=== PATIENT | female | born 1995 | race Caucasian/White ===

== ENCOUNTER 2019-03-17 16:55 | Emergency (ER) | payer SELFPAY ==
--- NOTE | 2019-03-17 18:20 | EDM.PDOC ---
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 She reports ever since she had her daughter 4 years ago she has only had a few periods. She reports the most recent period has lasted 3 weeks. It starts heavy then decreases and starts again. She reports feeling weak and had developed a recent headache. She reports currently her period has stopped. She denies fever, chills, nausea, vomiting or back pain. Onset Date: 02/24/19 Onset Time: 12:00 Duration: Intermittent Severity: Mild Improves with: Reports: None Worsens with: Reports: None Associated Symptoms: Reports: Headaches, Weakness. Denies: Confusion, Fever/ Chills, Loss of Appetite, Nausea/Vomiting, Syncope Pelvic Pain Score (Numeric/FACES): 5 - Related Data Allergies Allergy/AdvReac Type Severity Reaction Status Date / Time No Known Allergies Allergy Verified 03/17/19 17:22 Home Meds: Home Meds . 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 Denies: Dysuria, Flank Pain, Pain, Urgency Musculoskeletal: Reports: No Symptoms Skin: Reports: No Symptoms Neurological: Reports: Headache Psychiatric: Reports: No Symptoms Hematologic/Lymphatic: Reports: No Symptoms Immunologic: Reports: No Symptoms ED EXAM, GI/ABD - Physical Exam Exam: See Below Exam Limited By: No Limitations General Appearance: Alert, WD/WN, No Apparent Distress Eyes: Bilateral: EOMI Head: Atraumatic, Normocephalic Neck: Normal Inspection, Supple, Non-Tender, Full Range of Motion Respiratory/Chest: No Respiratory Distress, Lungs Clear, Normal Breath Sounds, No Accessory Muscle Use, Chest Non-Tender Cardiovascular: Normal Peripheral Pulses, Regular Rate, Rhythm, No Edema, No Gallop, No JVD, No Murmur, No Rub GI/Abdominal Exam: Normal Bowel Sounds, Soft, Non-Tender, No Organomegaly, No Distention, No Abnormal Bruit, No Mass, Pelvis Stable Back Exam: Normal Inspection, Full Range of Motion Neurological: Alert, Oriented, CN II-XII Intact, Normal Cognition, Normal Gait, Normal Reflexes, No Motor/Sensory Deficits Psychiatric: Normal Affect, Normal Mood Skin Exam: Warm, Dry, Intact, Normal Color, No Rash Lymphatic: No Adenopathy Course - Vital Signs Last Recorded V/S: Last Vital Signs Temp 98.4 F 03/17/19 17:11 Pulse 96 03/17/19 17:11 Resp 12 03/17/19 17:11 BP 143/99 H 03/17/19 17:11 Pulse Ox 100 03/17/19 17:11 - Orders/Labs/Meds Labs: Laboratory Tests 03/17/19 Range/Units 18:30 WBC 8.29 (3.98-10.04) K/mm3 RBC 4.71 (3.98-5.22) M/mm3 Hgb 14.2 (11.2-15.7) gm/L Hct 41.6 (34.1-44.9) % MCV 88.3 (79.4-94.8) fl MCH 30.1 (25.6-32.2) pg MCHC 34.1 (32.2-35.5) g/dl RDW Std Deviation 41.1 (36.4-46.3) fL Plt Count 213 (182-369) K/mm3 MPV 10.2 (9.4-12.3) fl Neut % (Auto) 72.3 H (34.0-71.1) % Lymph % (Auto) 20.9 (19.3-51.7) % [place] % (Auto) 5.5 (4.7-12.5) % Eos % (Auto) 1.0 (0.7-5.8) Baso % (Auto) 0.2 (0.1-1.2) % Neut # (Auto) 5.99 (1.56-6.13) K/mm3 Lymph # (Auto) 1.73 (1.18-3.74) K/mm3 [place] # (Auto) 0.46 H (0.24-0.36) K/mm3 Eos # (Auto) 0.08 (0.04-0.36) K/mm3 Baso # (Auto) 0.02 (0.01-0.08) K/mm3 Meds: Medications Discontinued Medications Generic Name Dose Route Start Last Admin Trade Name Freq PRN Reason Stop Dose Admin Ketorolac Tromethamine 30 mg 03/17/19 18:14 03/17/19 19:00 Toradol IM 03/17/19 18:15 30 mg ONETIME ONE Administration - Re-Assessments/Exams Free Text/Narrative Re-Assessment/Exam: 03/17/19 19:04 23 y/o female presented to ER with cc irregular period for the pat 3 weeks. Her WBC 8.29 RBC 4.71 H & H 14.2/41.6. She received Toradol and her condition improved. I will discharge with instructions to follow up with transit mix operator for further evaluation and treatment of her irregular menses. I will refer her to Dr. Boyer since she doesn't have a transit mix operator. Instructed to return to the ER for any new or acute worsening symptoms. Patient verbalized understanding and is comfortable with plan for discharge. She is stable at time of discharge. Departure - Departure Time of Disposition: 19:06 Disposition: Home, Self-Care 01 Condition: Good Clinical Impression: Irregular menses - Discharge Information Instructions: Abnormal Uterine Bleeding, [id number] Referrals: PCP,None [Primary Care Provider] - Forms: ED Department Discharge Additional Instructions: you have been diagnosis with irregular periods. Your blood studies were unremarkable. I recommend you follow up with Dr. Boyer transit mix operator for further evaluation of irregular periods. Return to the ER for any new or acute worsening symptoms.
[2019-03-17] MEDS: Ketorolac 30 MG/ML SDV IM ONE (19:00)
== END 2019-03-17 19:30 | disposition home or self-care (01) ==
LOC: JD.ED 16:55
DX: N92.6 Irregular menstruation, unspecified (principal); F17.210 Nicotine dependence, cigarettes, uncomplicated
CPT/HCPCS: 36415; 85025; 96372; 99284; J1885; 99283

== ENCOUNTER 2019-04-17 17:11 | Emergency (ER) | payer MEDICAID ==
[2019-04-17] MEDS ORDERED: Sodium Chloride 0.9% 10 ML Syringe FLUSH PRN (17:36)
[2019-04-17] MEDS ORDERED: Ketorolac 30 MG/ML SDV IVPUSH ONE (17:36)
[2019-04-17] MEDS ORDERED: Ondansetron 4 MG/2 ML SDV IVPUSH ONE (17:36)
[2019-04-17] MEDS ORDERED: Lactated Ringers 1,000 ML IV ONE ×2 (17:45→18:50)
--- NOTE | 2019-04-17 18:13 | EDM.PDOC ---
ED HPI GENERAL MEDICAL PROBLEM - General Chief Complaint: Gastrointestinal Problem Stated Complaint: VOMITING Time Seen by Provider: 04/17/19 17:20 Source of Information: Reports: Patient History Limitations: Reports: No Limitations - History of Present Illness INITIAL COMMENTS - FREE TEXT/NARRATIVE: 23-year-old female presents for evaluation and treatment of nausea and vomiting. Patient reports that she went out drinking alcohol last night, does not recall how much she had. She states today she's been unable to keep anything down and has been vomiting constantly. She reports some abdominal pain and nausea. No diarrhea. States that she does not normally drink alcohol. Reports prior to last night she had no symptoms. Reports a chance or . Abdominal Pain Score (Numeric/FACES): 10 - Related Data Allergies Allergy/AdvReac Type Severity Reaction Status Date / Time No Known Allergies Allergy Verified 04/17/19 17:21 Home Meds: Home Meds . 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 Denies: Diarrhea, Hematemesis Neurological: Denies: Headache (earlier, none currently) ED EXAM, GI/ABD - Physical Exam Exam: See Below Exam Limited By: No Limitations General Appearance: Alert, WD/WN, Mild Distress (actively vomiting upon my arrival), Thin Throat/Mouth: Normal Inspection, Other (dry mucus membranes) Respiratory/Chest: No Respiratory Distress, Lungs Clear, Normal Breath Sounds Cardiovascular: Normal Peripheral Pulses, Regular Rate, Rhythm, No Murmur GI/Abdominal Exam: Normal Bowel Sounds, Soft, Non-Tender Neurological: Alert, Oriented, Normal Cognition Psychiatric: Normal Affect, Normal Mood Skin Exam: Warm, Dry, Normal Color Course - Vital Signs Last Recorded V/S: Last Vital Signs Temp 98.0 F 04/17/19 17:22 Pulse 84 04/17/19 17:22 Resp 18 04/17/19 17:22 BP 127/78 04/17/19 17:22 Pulse Ox 98 04/17/19 17:22 - Orders/Labs/Meds Labs: Laboratory Tests 04/17/19 04/17/19 04/17/19 Range/Units 18:10 18:10 18:10 WBC 14.25 H (3.98-10.04) K/mm3 RBC 5.23 H (3.98-5.22) M/mm3 Hgb 15.5 (11.2-15.7) gm/L Hct 45.0 H (34.1-44.9) % MCV 86.0 (79.4-94.8) fl MCH 29.6 (25.6-32.2) pg MCHC 34.4 (32.2-35.5) g/dl RDW Std Deviation 41.1 (36.4-46.3) fL Plt Count 293 D (182-369) K/mm3 MPV 9.9 (9.4-12.3) fl Neut % (Auto) 87.6 H (34.0-71.1) % Lymph % (Auto) 7.5 L (19.3-51.7) % [place] % (Auto) 4.5 L (4.7-12.5) % Eos % (Auto) 0 L (0.7-5.8) Baso % (Auto) 0.1 (0.1-1.2) % Neut # (Auto) 12.49 H (1.56-6.13) K/mm3 Lymph # (Auto) 1.07 L (1.18-3.74) K/mm3 [place] # (Auto) 0.64 H (0.24-0.36) K/mm3 Eos # (Auto) 0.00 L (0.04-0.36) K/mm3 Baso # (Auto) 0.01 (0.01-0.08) K/mm3 Manual Slide Review Abnormal smear Sodium 139 (136-145) mEq/L Potassium 4.1 (3.5-5.1) mEq/L Chloride 97 L (98-107) mEq/L Carbon Dioxide 23 (21-32) mEq/L Anion Gap 23.1 H (5-15) BUN 29 H (7-18) mg/dL Creatinine 1.2 H (0.55-1.02) mg/dL Est Cr Clr Drug Dosing 53.27 mL/min Estimated GFR (MDRD) 57 (>60) mL/min BUN/Creatinine Ratio 24.2 H (14-18) Glucose 101 (74-106) mg/dL Calcium 10.0 (8.5-10.1) mg/dL Magnesium 1.7 L (1.8-2.4) mg/dl Total Bilirubin 0.7 (0.2-1.0) mg/dL AST 41 H (15-37) U/L ALT 43 (14-59) U/L Alkaline Phosphatase 94 (46-116) U/L Total Protein 9.1 H (6.4-8.2) g/dl Albumin 4.9 (3.4-5.0) g/dl Globulin 4.2 gm/dL Albumin/Globulin Ratio 1.2 (1-2) HCG, Qual Negative (NEGATIVE) Meds: Medications Discontinued Medications Generic Name Dose Route Start Last Admin Trade Name Freq PRN Reason Stop Dose Admin Lactated Ringer's 1,000 mls @ 999 mls/hr 04/17/19 17:45 04/17/19 18:09 Ringers, Lactated IV 04/17/19 18:45 999 mls/hr .BOLUS ONE Administration Lactated Ringer's 1,000 mls @ 999 mls/hr 04/17/19 18:50 04/17/19 19:01 Ringers, Lactated IV 04/17/19 19:50 999 mls/hr .BOLUS ONE Administration Ketorolac Tromethamine 30 mg 04/17/19 17:36 04/17/19 18:10 Toradol IVPUSH 04/17/19 17:37 30 mg ONETIME ONE Administration Metoclopramide HCl 5 mg 04/17/19 18:51 04/17/19 19:01 Reglan IVPUSH 04/17/19 18:52 5 mg ONETIME ONE Administration Ondansetron HCl 4 mg 04/17/19 17:36 04/17/19 18:10 Zofran IVPUSH 04/17/19 17:37 4 mg ONETIME ONE Administration Sodium Chloride 10 ml 04/17/19 17:36 04/17/19 18:11 Saline Flush FLUSH 10 ml ASDIRECTED PRN Administration Keep Vein Open - Re-Assessments/Exams Free Text/Narrative Re-Assessment/Exam: 04/17/19 20:16 Patient feels improved after 2L LR, zofran, toradol and reglan. Is eating toast at this time. Feels comfortable going home. Will send home with some zofran. Labs reviewed with the patient. Discharge instructions as documented. Departure - Departure Time of Disposition: 20:18 Disposition: Home, Self-Care 01 Condition: Good Clinical Impression: Nausea & vomiting, Alcohol abuse - Discharge Information *PRESCRIPTION DRUG MONITORING PROGRAM REVIEWED*: No *COPY OF PRESCRIPTION DRUG MONITORING REPORT IN PATIENT CHANDNI: No Instructions: Alcohol Use Disorder, Nausea and Vomiting, Adult, [id number] Referrals: PCP,None [Primary Care Provider] - Forms: ED Department Discharge Additional Instructions: Zofran 4 mg sublingual tab every 8 hours as needed for nausea given from instymeds #10. Take the Zofran as needed 1 tab every 6 hours as needed for nausea. Recommend clear fluids and bland diet today. May advance to normal diet tomorrow as tolerated. Please return to the ER if your symptoms change or worsen.
[2019-04-17] MEDS ORDERED: Metoclopramide 10 MG/2 ML SDV IVPUSH ONE (18:51)
== END 2019-04-17 20:25 | disposition home or self-care (01) ==
LOC: JD.ED 17:11
DX: F10.10 Alcohol abuse, uncomplicated (principal); R11.2 Nausea with vomiting, unspecified; F17.210 Nicotine dependence, cigarettes, uncomplicated
CPT/HCPCS: 36415; 80053; 83735; 84703; 85025; 96361; 96374; 96375; 99284; J1885; J2405; J2765; J7120

== ENCOUNTER 2019-11-05 20:59 | Emergency (ER) | payer SELFPAY ==
--- NOTE | 2019-11-05 21:38 | EDM.PDOC ---
ED HPI GENERAL MEDICAL PROBLEM - General Chief Complaint: Respiratory Problem Stated Complaint: sob chest pain Time Seen by Provider: 11/05/19 21:38 Source of Information: Reports: Patient History Limitations: Reports: No Limitations - History of Present Illness INITIAL COMMENTS - FREE TEXT/NARRATIVE: 23-year-old female presents to the ED complaining of shortness of breath and a feeling like she can't get a full deep breath. She has a remote history of asthma but has not used an inhaler for a lengthy period of time. She does not appreciate any wheezing. The history suggests that she has enjoyed about a year of sobriety from methamphetamines but did take some about 3:00 this morning. She felt fine about 5:00 but since that time is developed more more anxiety and panic-like symptoms. She is actively hyperventilating in the room and just can' t relax. She did eat a little bit of food today. She denies possibility of . Size cough or sputum production or fever. Onset: Today Onset Date: 11/05/19 Onset Time: 08:00 Duration: Hour(s): Location: Reports: Generalized Quality: Reports: Other (Generalized sense of anxiety and hyperventilation. Dyspnea) Severity: Severe Improves with: Reports: None Worsens with: Reports: None Context: Reports: Other (Methamphetamine reaction.). Denies: Activity, Exercise , Lifting, Sick Contact, Trauma Associated Symptoms: Reports: Loss of Appetite, Malaise, Shortness of Breath. Denies: Confusion, Chest Pain, Cough, cough w sputum, Diaphoresis, Fever/Chills , Headaches, Nausea/Vomiting, Rash, Seizure, Syncope, Weakness Treatments EMAIL MARKETING COORDINATOR: Reports: Other (see below) (None.) Chest Pain Score (Numeric/FACES): 4 - Related Data Allergies Allergy/AdvReac Type Severity Reaction Status Date / Time No Known Allergies Allergy Verified 11/05/19 21:05 Home Meds: Home Meds . 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 Denies : Fever, Chills HEENT: Reports: No Symptoms Respiratory: Reports: Shortness of Breath. Denies: Wheezing, Pleuritic Chest Pain, Cough, Sputum, Hemoptysis, Other Cardiovascular: Reports: Lightheadedness, Palpitations. Denies: Chest Pain ( Strong feeling of inability to get a full deep breath.), Blood Pressure Problem , Claudication Endocrine: Reports: No Symptoms GI/Abdominal: Reports: Decreased Appetite : Reports: No Symptoms Musculoskeletal: Reports: No Symptoms Skin: Reports: Other Neurological: Reports: No Symptoms (Feels a bit clammy at times.) Psychiatric: Reports: Anxiety ED EXAM, GENERAL - Physical Exam Exam: See Below Exam Limited By: No Limitations General Appearance: Alert, WD/WN, Moderate Distress, Other (Hyperventilating. Temperature is 37.8. Pulse is 97 respiratory rate is 24 sats are 97% on room air. BP 127/85) Eye Exam: Bilateral Eye: Normal Inspection, PERRL Throat/Mouth: Normal Inspection, Normal Lips, Normal Oropharynx Head: Atraumatic, Normocephalic Neck: Normal Inspection, Supple, Non-Tender, Full Range of Motion. No: Lymphadenopathy (L), Lymphadenopathy (R) Respiratory/Chest: Lungs Clear, Normal Breath Sounds (Moderate tachypnea.), No Accessory Muscle Use, Chest Non-Tender, Respiratory Distress. No: Crackles, Rales, Rhonchi, Wheezing Cardiovascular: No Edema, No Gallop (Tachycardia at the bedside and I got 1 16/ m.), No JVD, No Murmur, No Rub, Tachycardia Peripheral Pulses: 3+: Posterior Tibial (L), Posterior Tibial (R), Dorsalis Pedis (L), Dorsalis Pedis (R) GI/Abdominal: Normal Bowel Sounds, Soft, Non-Tender, No Organomegaly, No Abnormal Bruit, No Mass, Pelvis Stable Back Exam: Normal Inspection, Full Range of Motion. No: CVA Tenderness (L), CVA Tenderness (R) Extremities: Normal Inspection, Normal Range of Motion, Non-Tender Neurological: Alert, Oriented, CN II-XII Intact, Normal Cognition, Normal Gait Psychiatric: Anxious Skin Exam: Warm, Dry, Intact, Normal Color, No Rash EKG INTERPRETATION EKG Date: 11/05/19 Time: 21:19 Rhythm: NSR Rate (Beats/Min): 88 (Occasional PACs) [place]: Normal P-Wave: Enlarged (Consider left atrial hypertrophy) QRS: Normal ST-T: Normal QT: Prolonged (Mildly prolonged at 469.) EKG Interpretation Comments: Borderline ECG Course - Vital Signs Last Recorded V/S: Last Vital Signs Temp 37.8 C 11/05/19 21:08 Pulse 97 11/05/19 21:08 Resp 18 11/05/19 21:08 BP 127/85 11/05/19 21:08 Pulse Ox 97 11/05/19 21:08 - Orders/Labs/Meds Orders: Active Orders 24 hr Category Date Time Status EKG 12 Lead [EKG Documentation Completion] [RC] STAT Care 11/05/19 21:18 Active Meds: Medications Discontinued Medications Generic Name Dose Route Start Last Admin Trade Name Freq PRN Reason Stop Dose Admin Lorazepam 2 mg 11/05/19 21:42 11/05/19 21:52 Ativan PO 11/05/19 21:43 2 mg ONETIME ONE Administration - Radiology Interpretation Free Text/Narrative:: 23-year-old female presents to the ED with dyspnea symptoms. She feels that she cannot get a full deep breath. Note she is methamphetamines earlier this morning for the first time in a year. It okay about 5:00 in the morning but by age she started to feel more anxious. This evening she's become feeling even more panicky likely partially due to guilt. She states she has a history of asthma but has not used an inhaler for a lengthy period of time. Examination reveals her to be hyperventilating and suffering panic attack symptoms. To the stimulant effect of methamphetamine. Plan Ativan 1 mg by mouth now and sent home with one tablet to take later this morning if needed. Departure - Departure Time of Disposition: 21:49 Disposition: Home, Self-Care 01 Condition: Fair Clinical Impression: Hyperventilation syndrome, Anxiety attack - Discharge Information *PRESCRIPTION DRUG MONITORING PROGRAM REVIEWED*: Not Applicable *COPY OF PRESCRIPTION DRUG MONITORING REPORT IN PATIENT CHANDNI: Not Applicable Instructions: Panic Attack, [id number] Referrals: PCP,None [Primary Care Provider] - Forms: ED Department Discharge Additional Instructions: Evaluation the emergency room tonight in regards to dyspnea or feeling of shortness of breath and inability to get a full deep breath. Lungs are clear on examination but you are hyper ventilating due to the stimulant effect of methamphetamine taken earlier today. Created some anxiety and panic attack symptoms. Treatment is Ativan 1 mg now and repeat in 4-6 hours if necessary to bring symptoms under control. Sepsis Event Note - Evaluation Sepsis Screening Result: No Definite Risk - Focused Exam Vital Signs: Vital Signs Temp Pulse Resp BP Pulse Ox 11/05/19 21:08 37.8 C 97 18 127/85 97 Date Exam was Performed: 11/05/19 Time Exam was Performed: 23:03 - My Orders Last 24 Hours: My Active Orders 11/05/19 21:18 EKG 12 Lead [EKG Documentation Completion] [RC] STAT - Assessment/Plan Last 24 Hours: My Active Orders 11/05/19 21:18 EKG 12 Lead [EKG Documentation Completion] [RC] STAT
[2019-11-05] MEDS ORDERED: LORazepam 1 MG Tab PO ONE (21:42)
== END 2019-11-05 22:05 | disposition home or self-care (01) ==
LOC: JD.ED 20:59
DX: F41.9 Anxiety disorder, unspecified (principal); J45.909 Unspecified asthma, uncomplicated; F17.210 Nicotine dependence, cigarettes, uncomplicated
CPT/HCPCS: 93005; 99284; A9270; 93010; 99283

== ENCOUNTER 2019-11-06 12:59 | Emergency (ER) | payer SELFPAY ==
[2019-11-06] MEDS ORDERED: Albuterol/Ipratropium 3.0-0.5 MG/3 ML Neb Soln NEB ONE (13:23)
[2019-11-06] MEDS ORDERED: LORazepam 1 MG Tab PO ONE (13:23)
[2019-11-06] MEDS ORDERED: predniSONE 20 MG Tab PO ONE (13:24)
--- NOTE | 2019-11-06 14:55 | EDM.PDOC ---
ED HPI GENERAL MEDICAL PROBLEM - General Chief Complaint: Respiratory Problem Stated Complaint: SOB NOT BETTER Time Seen by Provider: 11/06/19 13:13 Source of Information: Reports: Patient History Limitations: Reports: No Limitations - History of Present Illness INITIAL COMMENTS - FREE TEXT/NARRATIVE: The patient presents with shortness of breath. She inhaled meth on and since then she has had trouble breathing and had tightness in her chest. She was seen here last night and given a dose of ativan. She did feel better for a short time and now she has it back. She has no fever or chills. She does have a slight cough at times. She does have asthma and she is out of her inhaler. She has some tightness in her chest. Onset: Gradual Duration: Day(s): Location: Reports: Chest Quality: Reports: Other (tightness) Severity: Moderate Improves with: Reports: None Worsens with: Reports: None Associated Symptoms: Reports: Chest Pain, Cough, Shortness of Breath. 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 Social & Family History - Family History Family Medical History: Noncontributory - Tobacco Use Smoking Status *Q: Current Every Day Smoker Years of Tobacco use: 10 Packs/Tins Daily: 0.5 - Caffeine Use Caffeine Use: Reports: Soda - Recreational Drug Use Recreational Drug Use: Yes Drug Use in Last 12 Months: Yes - Living Situation & Occupation Living situation: Reports: Single Occupation: Employed ED ROS GENERAL - Review of Systems Review Of Systems: See Below Constitutional: Reports: No Symptoms HEENT: Reports: No Symptoms Respiratory: Reports: Shortness of Breath, Cough Cardiovascular: Reports: Chest Pain Endocrine: Reports: No Symptoms GI/Abdominal: Reports: No Symptoms : Reports: No Symptoms Musculoskeletal: Reports: No Symptoms ED EXAM, GENERAL - Physical Exam Exam: See Below Exam Limited By: No Limitations General Appearance: Alert, No Apparent Distress Ears: Normal External Exam Nose: Normal Inspection Head: Atraumatic, Normocephalic Neck: Normal Inspection Respiratory/Chest: No Respiratory Distress, Decreased Breath Sounds Cardiovascular: Regular Rate, Rhythm, No Edema, No Murmur GI/Abdominal: Soft, Non-Tender, No Organomegaly, No Mass Back Exam: Normal Inspection Extremities: Normal Inspection EKG INTERPRETATION EKG Date: 11/06/19 Time: 13:50 Rhythm: NSR Rate (Beats/Min): 93 [place]: Normal P-Wave: Present QRS: Normal ST-T: Normal QT: Normal Course - Vital Signs Last Recorded V/S: Last Vital Signs Temp 98.7 F 11/06/19 13:10 Pulse 115 H 11/06/19 13:10 Resp 20 11/06/19 13:10 BP 124/84 11/06/19 13:10 Pulse Ox 99 11/06/19 13:23 - Orders/Labs/Meds Orders: Active Orders 24 hr Category Date Time Status Cardiac Monitoring [RC] . DIRECTED Care 11/06/19 13:22 Active EKG Documentation Completion [RC] STAT Care 11/06/19 13:23 Active RT Aerosol Therapy [RC] ASDIRECTED Care 11/06/19 13:23 Active Chest 2V [CR] Stat Exams 11/06/19 13:23 Taken Labs: Laboratory Tests 11/06/19 11/06/19 11/06/19 Range/Units 13:37 13:37 13:37 WBC 10.78 H (3.98-10.04) K/mm3 RBC 4.85 (3.98-5.22) M/mm3 Hgb 14.7 (11.2-15.7) gm/dl Hct 41.5 (34.1-44.9) % MCV 85.6 (79.4-94.8) fl MCH 30.3 (25.6-32.2) pg MCHC 35.4 (32.2-35.5) g/dl RDW Std Deviation 40.5 (36.4-46.3) fL Plt Count 226 (182-369) K/mm3 MPV 10.0 (9.4-12.3) fl Neut % (Auto) 70.2 (34.0-71.1) % Lymph % (Auto) 19.9 (19.3-51.7) % [place] % (Auto) 8.4 (4.7-12.5) % Eos % (Auto) 0.9 (0.7-5.8) Baso % (Auto) 0.3 (0.1-1.2) % Neut # (Auto) 7.56 H (1.56-6.13) K/mm3 Lymph # (Auto) 2.15 (1.18-3.74) K/mm3 [place] # (Auto) 0.91 H (0.24-0.36) K/mm3 Eos # (Auto) 0.10 (0.04-0.36) K/mm3 Baso # (Auto) 0.03 (0.01-0.08) K/mm3 D-Dimer, Quantitative < 0.19 L (0.19-0.50) mg/L Sodium 136 (136-145) mEq/L Potassium 3.5 (3.5-5.1) mEq/L Chloride 102 (98-107) mEq/L Carbon Dioxide 20 L (21-32) mEq/L Anion Gap 17.5 H (5-15) BUN 11 (7-18) mg/dL Creatinine 0.9 (0.55-1.02) mg/dL Est Cr Clr Drug Dosing 71.02 mL/min Estimated GFR (MDRD) > 60 (>60) mL/min BUN/Creatinine Ratio 12.2 L (14-18) Glucose 82 (74-106) mg/dL Calcium 9.4 (8.5-10.1) mg/dL Total Bilirubin 1.7 H (0.2-1.0) mg/dL AST 18 (15-37) U/L ALT 17 (14-59) U/L Alkaline Phosphatase 69 (46-116) U/L Troponin I 0.017 (0.00-0.056) ng/mL Total Protein 7.7 (6.4-8.2) g/dl Albumin 4.7 (3.4-5.0) g/dl Globulin 3.0 gm/dL Albumin/Globulin Ratio 1.6 (1-2) Meds: Medications Discontinued Medications Generic Name Dose Route Start Last Admin Trade Name Freq PRN Reason Stop Dose Admin Albuterol/Ipratropium 3 ml 11/06/19 13:23 11/06/19 13:59 Duoneb 3.0-0.5 Mg/3 Ml NEB 11/06/19 13:24 3 ml ONETIME ONE Administration Lorazepam 1 mg 11/06/19 13:23 Ativan PO 11/06/19 13:24 ONETIME ONE Prednisone 40 mg 11/06/19 13:24 Prednisone PO 11/06/19 13:25 ONETIME ONE - Re-Assessments/Exams Free Text/Narrative Re-Assessment/Exam: 11/06/19 14:54 I ordered labs, EKG, CXR, labs, ativan 1mg PO, duoneb and prednisone 40gm PO. Her EKG shows NSR with no acute changes. Her WBC was slightly elevated at 10.78. Her D-dimer is negative along with her tropnonin. Her anion gap is elevated at 17.5. She feels better. I will get her an inhaler and some ativan. Departure - Departure Time of Disposition: 15:00 Disposition: Home, Self-Care 01 Condition: Good Clinical Impression: Anxiety attack Asthma Qualifiers: Asthma severity: mild Asthma persistence: intermittent Asthma complication type : uncomplicated Qualified Code(s): J45.20 - Mild intermittent asthma, uncomplicated - Discharge Information *PRESCRIPTION DRUG MONITORING PROGRAM REVIEWED*: No *COPY OF PRESCRIPTION DRUG MONITORING REPORT IN PATIENT CHANDNI: No Prescriptions: LORazepam [Ativan] 1 mg PO TID PRN #20 tablet PRN Reason: Anxiety Referrals: PCP,None [Primary Care Provider] - Hilaria Clarke PA-C [Physician Chef & Owner] - 1 Week Forms: ED Department Discharge Additional Instructions: Take the ativan 3 times per day as needed for anxiety. Use the inhaler 2 puffs every 6 hours as needed for shortness of breath. Please return if you are worse. Sepsis Event Note - Evaluation Sepsis Screening Result: No Definite Risk - Focused Exam Vital Signs: Vital Signs Temp Pulse Resp BP Pulse Ox Pulse Ox 11/06/19 13:23 99 11/06/19 13:10 98.7 F 115 H 20 124/84 95 Date Exam was Performed: 11/06/19 Time Exam was Performed: 14:58 - My Orders Last 24 Hours: My Active Orders 11/06/19 13:22 Cardiac Monitoring [RC] . DIRECTED 11/06/19 13:23 EKG Documentation Completion [RC] STAT RT Aerosol Therapy [RC] ASDIRECTED Chest 2V [CR] Stat - Assessment/Plan Last 24 Hours: My Active Orders 11/06/19 13:22 Cardiac Monitoring [RC] . DIRECTED 11/06/19 13:23 EKG Documentation Completion [RC] STAT RT Aerosol Therapy [RC] ASDIRECTED Chest 2V [CR] Stat
--- NOTE | 2019-11-08 10:47 | CR ---
Chest: Two views of the chest were obtained. Comparison: No prior chest imaging. Heart size and mediastinum are normal. Lungs are clear with no acute parenchymal change. Minimal scoliosis is noted within the spine. Impression: 1. Nothing acute is appreciated on two-view chest x-ray. Diagnostic code #2 This report was dictated in Mountain Standard Time
== END 2019-11-06 15:15 | disposition home or self-care (01) ==
LOC: JD.ED 12:59
DX: F41.0 Panic disorder [episodic paroxysmal anxiety] (principal); J45.20 Mild intermittent asthma, uncomplicated; F17.210 Nicotine dependence, cigarettes, uncomplicated
CPT/HCPCS: 36415; 71046; 80053; 84484; 85025; 85379; 93005; 94640; 99285; A9270; 93010; 99283; J7620-GY

== ENCOUNTER 2020-02-10 16:28 | Emergency (ER) | payer SELFPAY | END 2020-02-10 17:32 | disposition left against medical advice (07) | LOC: JD.ED 16:28 | DX: Z53.21 Procedure and treatment not carried out due to patient leaving prior to being seen by health care provider (principal) ==

== ENCOUNTER 2020-04-15 18:33 | Emergency (ER) | payer MEDICAID ==
--- NOTE | 2020-04-15 18:58 | EDM.PDOC ---
ED HPI GENERAL MEDICAL PROBLEM - General Chief Complaint: General Stated Complaint: TOOTHACHE Time Seen by Provider: 04/15/20 18:39 Source of Information: Reports: Patient History Limitations: Reports: No Limitations - History of Present Illness INITIAL COMMENTS - FREE TEXT/NARRATIVE: Patient is a 24-year-old female who presents to the emergency department with complaints of right upper tooth pain. She states that she has a broken tooth that has been causing her problems. She was seen in the walk-in clinic for this issue and given amoxicillin and Naprosyn. She states it initially improved her symptoms, however the pain has returned. She denies any fever, nausea, or vomiting, however does feel warmth and edema around the area where the tooth is located. She does not have a dentist locally and does not have dental insurance. States she is working on finding a way to get the tooth taken care of. Been using [id number] Orajel in addition to the the Naprosyn without relief. 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 Right Upper Tooth/Teeth Pain Score (Numeric/FACES): 6 - Related Data Allergies Allergy/AdvReac Type Severity Reaction Status Date / Time No Known Allergies Allergy Verified 04/15/20 18:44 Home Meds: Home Meds Albuterol [Proventil HFA] 2 puff INH Q4H PRN #1 inhaler 11/06/19 [Rx] Acetaminophen with Codeine [Tylenol with Codeine #3 Tablet] 1 each PO Q4H PRN # 10 tablet 04/15/20 [Rx] Naproxen 500 mg PO BID 04/15/20 [History] Penicillin V Potassium [Veetids] 500 mg PO Q6H 10 Days #40 tab 04/15/20 [Rx] Past Medical History - Past Health History Medical/Surgical History: Denies Medical/Surgical History HEENT History: Reports: None Cardiovascular History: Reports: None Respiratory History: Reports: Asthma Gastrointestinal History: Reports: None Genitourinary History: Reports: None 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: , 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 Musculoskeletal History: Reports: None Neurological History: Reports: None Psychiatric History: Reports: Anxiety, Depression, Suicide Attempt, Suicidal Ideation Endocrine/Metabolic History: Reports: None Hematologic History: Reports: None Immunologic History: Reports: None Oncologic (Cancer) History: Reports: None Dermatologic History: Reports: None - Infectious Disease History Infectious Disease History: Reports: None Social & Family History - Family History Family Medical History: Noncontributory - Tobacco Use Smoking Status *Q: Current Every Day Smoker Years of Tobacco use: 12 Packs/Tins Daily: 0.5 - Caffeine Use Caffeine Use: Reports: Soda - Recreational Drug Use Recreational Drug Use: No - Living Situation & Occupation Living situation: Reports: Single Occupation: Employed ED ROS GENERAL - Review of Systems Review Of Systems: Comprehensive ROS is negative, except as noted in HPI. ED EXAM, GENERAL - Physical Exam Exam: See Below Exam Limited By: No Limitations General Appearance: Alert, WD/WN, No Apparent Distress Throat/Mouth: Normal Inspection, Normal Lips, Normal Gums, Normal Oropharynx, Normal Voice, Other (Tooth #13 and filling broken on the posterior aspect of the tooth.) Respiratory/Chest: No Respiratory Distress, Lungs Clear, Normal Breath Sounds, No Accessory Muscle Use, Chest Non-Tender Cardiovascular: Normal Peripheral Pulses, Regular Rate, Rhythm, No Edema, No Gallop, No JVD, No Murmur, No Rub Neurological: Alert, Oriented, CN II-XII Intact, Normal Cognition, Normal Gait, Normal Reflexes, No Motor/Sensory Deficits Psychiatric: Normal Affect, Normal Mood Skin Exam: Warm, Dry, Intact, Normal Color, No Rash Course - Vital Signs Last Recorded V/S: Last Vital Signs Temp 99.0 F 04/15/20 18:40 Pulse 100 04/15/20 18:40 Resp 18 04/15/20 18:40 BP 130/84 04/15/20 18:40 Pulse Ox 99 04/15/20 18:40 Departure - Departure Time of Disposition: 19:00 Disposition: Home, Self-Care 01 Condition: Good Clinical Impression: Tooth pain - Discharge Information *PRESCRIPTION DRUG MONITORING PROGRAM REVIEWED*: Yes *COPY OF PRESCRIPTION DRUG MONITORING REPORT IN PATIENT CHANDNI: No Prescriptions: Acetaminophen with Codeine [Tylenol with Codeine #3 Tablet] 1 each PO Q4H PRN # 10 tablet PRN Reason: Pain Penicillin V Potassium [Veetids] 500 mg PO Q6H 10 Days #40 tab Referrals: PCP,None [Primary Care Provider] - Additional Instructions: You were seen in the emergency department today for right upper tooth pain. You been started on a prescription of penicillin V. Recommend that you take [id number] ibuprofen as needed for pain. For pain not relieved by this, a prescription for Tylenol 3 has been provided. As we discussed the only way to resolve your tooth pain is to see a dentist. Since you do not have dental insurance, recommend calling [facility] in [place]. Their phone number is [phone]. Return to the ER as needed. Sepsis Event Note - Evaluation Sepsis Screening Result: No Definite Risk - Focused Exam Vital Signs: Vital Signs Temp Pulse Resp BP Pulse Ox 04/15/20 18:40 99.0 F 100 18 130/84 99 Date Exam was Performed: 04/15/20 Time Exam was Performed: 18:52
== END 2020-04-15 19:20 | disposition home or self-care (01) ==
LOC: JD.ED 18:33
DX: K08.89 Other specified disorders of teeth and supporting structures (principal); F17.210 Nicotine dependence, cigarettes, uncomplicated
CPT/HCPCS: 99282

== ENCOUNTER 2020-06-11 15:18 | Emergency (ER) | payer MEDICAID ==
--- NOTE | 2020-06-11 15:36 | EDM.PDOC ---
ED HPI GENERAL MEDICAL PROBLEM - General Chief Complaint: ENT Problem Stated Complaint: TOOTHACHE Time Seen by Provider: 06/11/20 15:33 Source of Information: Reports: Patient History Limitations: Reports: No Limitations - History of Present Illness INITIAL COMMENTS - FREE TEXT/NARRATIVE: 24-year-old female presents to the ED with dental pain. Patient has periodontal disease but current tooth that is bothering her is her right lower third and second molar teeth. Describes the pain is constant and throbbing and unable to eat. She denies any possibility of . Facial swelling. Pain does radiate to her right ear at times. Onset: Gradual Onset Date: 06/09/20 Duration: Day(s):, Getting Worse Location: Reports: Face (RightLower dental pain) Quality: Reports: Ache, Throbbing, Other Severity: Moderate (All sedating) Improves with: Reports: None ( 8 out of 10) Worsens with: Reports: Other (Trying to eat or) Context: Reports: Other (Chronic problems with tooth ache in the same area.). Denies: Activity ( bite down on the right side.), Exercise, Lifting, Sick Contact, Trauma Associated Symptoms: Reports: No Other Symptoms, Malaise. Denies: Fever/Chills Treatments DRAY DRIVER: Reports: Acetaminophen (Blank of sleep), NSAIDS (Samm with very little relief.) - Related Data Allergies Allergy/AdvReac Type Severity Reaction Status Date / Time No Known Allergies Allergy Verified 06/11/20 15:25 Home Meds: Home Meds Amoxicillin/Potassium Clav [Augmentin 500-125 Tablet] 1 each PO BID #20 tablet 06/11/20 [Rx] oxyCODONE HCl/Acetaminophen [Percocet 5-325 mg Tablet] 1 - 2 each PO Q4H PRN #16 tablet 06/11/20 [Rx] Past Medical History - Past Health History Medical/Surgical History: Denies Medical/Surgical History HEENT History: Reports: None Cardiovascular History: Reports: None Respiratory History: Reports: Asthma Gastrointestinal History: Reports: None Genitourinary History: Reports: None 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: , 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 Musculoskeletal History: Reports: None Neurological History: Reports: None Psychiatric History: Reports: Anxiety, Depression, Suicide Attempt, Suicidal Ideation Endocrine/Metabolic History: Reports: None Hematologic History: Reports: None Immunologic History: Reports: None Oncologic (Cancer) History: Reports: None Dermatologic History: Reports: None - Infectious Disease History Infectious Disease History: Reports: None Social & Family History - Family History Family Medical History: Noncontributory - Tobacco Use Smoking Status *Q: Current Every Day Smoker Years of Tobacco use: 10 Packs/Tins Daily: 0.5 Used Tobacco, but Quit: No - Caffeine Use Caffeine Use: Reports: Soda - Recreational Drug Use Recreational Drug Use: Yes Drug Use in Last 12 Months: No Recreational Drug Type: Reports: Methamphetamine Other Recreational Drug Type: not for 3 years - Living Situation & Occupation Living situation: Reports: Single Occupation: Employed ED ROS ENT - Review of Systems Review Of Systems: See Below Constitutional: Reports: Fatigue, Decreased Appetite. Denies: Fever, Chills, Malaise HEENT: Reports: Dental Pain (Right lower second and third molar tooth pain.), Ear Pain (Ear pain referred from the dental pain.) Respiratory: Reports: No Symptoms Cardiovascular: Reports: No Symptoms, Palpitations GI/Abdominal: Reports: No Symptoms : Reports: No Symptoms Musculoskeletal: Reports: No Symptoms Skin: Reports: No Symptoms Neurological: Reports: No Symptoms Psychiatric: Reports: No Symptoms Hematologic/Lymphatic: Reports: No Symptoms Immunologic: Reports: No Symptoms ED EXAM, ENT - Physical Exam Exam: See Below Exam Limited By: No Limitations General Appearance: Alert, WD/WN, Mild Distress, Other (Temperature is 36.6. Heart rate is 97 and sinus respiratory is 18 BP 1 40-100.) Eye Exam: Bilateral Eye: Normal Inspection, Periorbital Changes, PERRL Ears: Normal TMs Mouth/Throat: Dental Abcess (Right lower second and third molar teeth. Shaded gingiva swelling without any pustules or abscess that would benefit from drainage.), Dental Pain Head: Atraumatic, Normocephalic Neck: Normal Inspection, Supple, Non-Tender, Full Range of Motion. No: Lymphadenopathy (L), Lymphadenopathy (R) Respiratory/Chest: No Respiratory Distress, Lungs Clear, Normal Breath Sounds, No Accessory Muscle Use Cardiovascular: Normal Peripheral Pulses, Regular Rate, Rhythm, No Edema, No Gallop, No Murmur, No Rub Course - Vital Signs Last Recorded V/S: Last Vital Signs Temp 36.6 C 06/11/20 15:26 Pulse 97 06/11/20 15:26 Resp 18 06/11/20 15:26 BP 142/100 H 06/11/20 15:26 Pulse Ox 94 L 06/11/20 15:26 - Radiology Interpretation Free Text/Narrative:: 24-year-old female presents to the ED planing of dental pain primarily from her right lower second and third molar teeth. She has had problems in the same area in the past. She cannot afford the dental surgery required to have them repaired. She has no signs of cellulitis of the face. Plan treated with Augmentin tablets 500/125 mg 1 tablet twice daily for the next 10 days to clear up infection. She will continue use either Motrin or Aleve for dental inflammation. Percocet tabs 5/325 mg 1 or 2 every 4-6 hours necessary for pain relief. 12 tablets provided. Advised follow-up with dentist when able. Departure - Departure Time of Disposition: 15:33 Disposition: Home, Self-Care 01 Condition: Fair Clinical Impression: Dental abscess - Discharge Information *PRESCRIPTION DRUG MONITORING PROGRAM REVIEWED*: Not Applicable *COPY OF PRESCRIPTION DRUG MONITORING REPORT IN PATIENT CHANDNI: Not Applicable Prescriptions: Amoxicillin/Potassium Clav [Augmentin 500-125 Tablet] 1 each PO BID #20 tablet oxyCODONE HCl/Acetaminophen [Percocet 5-325 mg Tablet] 1 - 2 each PO Q4H PRN #16 tablet PRN Reason: pain relief. Referrals: PCP,None [Primary Care Provider] - Forms: ED Department Discharge Additional Instructions: Evaluation in the emergency room today in regards to dental abscess involving the right lower third molar and second molar teeth. Treatment is antibiotic Augmentin 500/125 mg 1 tablet twice daily for the next 10 days to clear up infection. Continue anti-inflammatory either Aleve 2 tablets every 8 hours or Motrin 600 mg every 6 hours to decrease pain and inflammation. Said tabs 5/325 mg 1 or 2 every 4-6 hours for pain relief as needed until the antibiotics become effective which will usually be 48 hours. Will up with dentist when able Sepsis Event Note (ED) - Evaluation Sepsis Screening Result: No Definite Risk - Focused Exam Vital Signs: Vital Signs Temp Pulse Resp BP Pulse Ox 06/11/20 15:26 36.6 C 97 18 142/100 H 94 L
== END 2020-06-11 15:40 | disposition home or self-care (01) ==
LOC: JD.ED 15:18
DX: K04.7 Periapical abscess without sinus (principal); F17.210 Nicotine dependence, cigarettes, uncomplicated
CPT/HCPCS: 99282; 99283

== ENCOUNTER 2020-07-23 02:22 | Emergency (ER) | payer MEDICAID ==
[2020-07-23] MEDS ORDERED: Ondansetron 4 MG/2 ML SDV IVPUSH ONE (02:49)
[2020-07-23] MEDS ORDERED: diphenhydrAMINE 50 MG/ML SDV IVPUSH ONE (02:49)
[2020-07-23] MEDS ORDERED: LORazepam 2 MG/ML SDV IVPUSH ONE (02:50)
--- NOTE | 2020-07-23 02:52 | EDM.PDOC ---
ED HPI GENERAL MEDICAL PROBLEM - General Chief Complaint: Headache Stated Complaint: MIGRAINE Time Seen by Provider: 07/23/20 02:36 Source of Information: Reports: Patient History Limitations: Reports: No Limitations - History of Present Illness INITIAL COMMENTS - FREE TEXT/NARRATIVE: This is a 24-year-old female. Onset of a headache yesterday morning when she awoke. She did not appear to have any sort of prodrome or visual changes but she has had some intermittent vomiting due to the headache. The headache appears to be on the right side of the head behind the eye and may be down into the right neck area. She denies any recent trauma. She has had no congestion no sore throat no cough no other acute symptoms. She does have a history of migraines but the last one she had was when she was 15 years old and none since that time. Head Pain Score (Numeric/FACES): 7 - Related Data Allergies Allergy/AdvReac Type Severity Reaction Status Date / Time No Known Allergies Allergy Verified 07/23/20 02:35 Home Meds: Home Meds Acetaminophen/Butalbital/Caff [Fioricet 325-50-40 MG] 1 each PO Q8H PRN #10 tab 07/23/20 [Rx] Albuterol Sulfate [Proventil Hfa] 6.7 gm IH 07/23/20 [History] Past Medical History - Past Health History Medical/Surgical History: Denies Medical/Surgical History HEENT History: Reports: None Cardiovascular History: Reports: None Respiratory History: Reports: Asthma Gastrointestinal History: Reports: None Genitourinary History: Reports: None 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: , 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 Musculoskeletal History: Reports: None Neurological History: Reports: None Psychiatric History: Reports: Anxiety, Depression, Suicide Attempt, Suicidal Ideation Endocrine/Metabolic History: Reports: None Hematologic History: Reports: None Immunologic History: Reports: None Oncologic (Cancer) History: Reports: None Dermatologic History: Reports: None - Infectious Disease History Infectious Disease History: Reports: None Social & Family History - Family History Family Medical History: Noncontributory - Tobacco Use Smoking Status *Q: Current Every Day Smoker Years of Tobacco use: 2 Packs/Tins Daily: 0.5 - Caffeine Use Caffeine Use: Reports: Soda - Recreational Drug Use Recreational Drug Use: No - Living Situation & Occupation Living situation: Reports: Single Occupation: Employed ED ROS GENERAL - Review of Systems Review Of Systems: See Below Constitutional: Denies: Fever, Chills HEENT: Denies: Rhinitis, Sinus Problem, Throat Pain Respiratory: Denies: Shortness of Breath, Cough Cardiovascular: Denies: Chest Pain Endocrine: Reports: No Symptoms GI/Abdominal: Reports: Nausea, Vomiting. Denies: Abdominal Pain : Reports: No Symptoms Musculoskeletal: Reports: No Symptoms Skin: Reports: No Symptoms Neurological: Reports: Headache Psychiatric: Reports: No Symptoms Hematologic/Lymphatic: Reports: No Symptoms - Physical Exam Exam: See Below Exam Limited By: No Limitations General Appearance: Alert, WD/WN, No Apparent Distress Eye Exam: Bilateral Eye: Normal Inspection Ears: Normal External Exam, Normal Canal, Normal TMs Nose: Normal Inspection. No: Clear Rhinorrhea Throat/Mouth: Normal Inspection, Normal Lips, Normal Oropharynx, Normal Voice, No Airway Compromise Head Exam: Normocephalic Neck: Supple, Other (Patient of her cervical spine and the paraspinal muscles there is no tenderness he has full range of motion.) Respiratory/Chest: No Respiratory Distress, Lungs Clear, Normal Breath Sounds Cardiovascular: Regular Rate, Rhythm, No Murmur GI/Abdominal: Soft Neuro Exam (Abbreviated): Alert, Oriented, CN II-XII Intact, Normal Cognition Back Exam: Full Range of Motion Extremities: Normal Inspection, Normal Range of Motion Psychiatric: Normal Affect, Normal Mood Skin Exam: Warm, Dry Course - Vital Signs Last Recorded V/S: Last Vital Signs Temp 98.2 F 07/23/20 02:33 Pulse 81 07/23/20 02:33 Resp 16 07/23/20 02:33 BP 125/81 07/23/20 02:33 Pulse Ox 100 07/23/20 02:33 - Orders/Labs/Meds Orders: Active Orders 24 hr Category Date Time Status Sodium Chloride 0.9% [Normal Saline] 1,000 ml Med 07/23/20 03:00 Active IV ASDIRECTED Medication Orders Sodium Chloride (Normal Saline) 1,000 mls @ 1,000 mls/hr IV ASDIRECTED VICK Last Admin: 07/23/20 03:01 Dose: 1,000 mls/hr Documented by: CHITRA Meds: Medications Generic Name Dose Route Start Last Admin Trade Name Freq PRN Reason Stop Dose Admin Sodium Chloride 1,000 mls @ 1,000 mls/hr 07/23/20 03:00 07/23/20 03:01 Normal Saline IV 1,000 mls/hr ASDIRECTED VICK Administration Discontinued Medications Generic Name Dose Route Start Last Admin Trade Name Araceli PRN Reason Stop Dose Admin Diphenhydramine HCl 25 mg 07/23/20 02:49 07/23/20 03:01 Benadryl IVPUSH 07/23/20 02:50 25 mg ONETIME ONE Administration Lorazepam 0.5 mg 07/23/20 02:50 07/23/20 03:01 Ativan IVPUSH 07/23/20 02:51 0.5 mg ONETIME ONE Administration Ondansetron HCl 4 mg 07/23/20 02:49 07/23/20 03:01 Zofran IVPUSH 07/23/20 02:50 4 mg ONETIME ONE Administration - Re-Assessments/Exams Free Text/Narrative Re-Assessment/Exam: 07/23/20 06:40 Patient has been sleeping soundly since we gave her her medications. She is awake now and says she is feeling somewhat better. We are going to get her home. Departure - Departure Time of Disposition: 06:40 Disposition: Home, Self-Care 01 Condition: Good Clinical Impression: Headache Qualifiers: Headache type: unspecified Headache chronicity pattern: acute headache Intractability: not intractable Qualified Code(s): R51 - Headache - Discharge Information *PRESCRIPTION DRUG MONITORING PROGRAM REVIEWED*: Not Applicable *COPY OF PRESCRIPTION DRUG MONITORING REPORT IN PATIENT CHANDNI: Not Applicable Prescriptions: Acetaminophen/Butalbital/Caff [Fioricet 325-50-40 MG] 1 each PO Q8H PRN #10 tab PRN Reason: Headache Instructions: Tension Headache, Adult Referrals: PCP,None [Primary Care Provider] - Forms: ED Department Discharge Additional Instructions: The medicine filled today and take it for your headache, you need to sleep is much as possible today to help your headache, drink lots of fluids especially water, if you think this is a different headache may be related to caffeine then drink some sodas or what ever that have some caffeine, follow-up with your family doctor later this week, return to the ER if needed Sepsis Event Note (ED) - Evaluation Sepsis Screening Result: No Definite Risk - Focused Exam Vital Signs: Vital Signs Temp Pulse Resp BP Pulse Ox 07/23/20 02:33 98.2 F 81 16 125/81 100 - My Orders Last 24 Hours: My Active Orders 07/23/20 03:00 Sodium Chloride 0.9% [Normal Saline] 1,000 ml IV ASDIRECTED - Assessment/Plan Last 24 Hours: My Active Orders 07/23/20 03:00 Sodium Chloride 0.9% [Normal Saline] 1,000 ml IV ASDIRECTED
[2020-07-23] MEDS ORDERED: Sodium Chloride 0.9% 1,000 ML IV SCH (03:00)
== END 2020-07-23 06:45 | disposition home or self-care (01) ==
LOC: JD.ED 02:22
DX: R51 Headache (principal); R11.10 Vomiting, unspecified; J45.909 Unspecified asthma, uncomplicated; F17.210 Nicotine dependence, cigarettes, uncomplicated
CPT/HCPCS: 96361; 96374; 96375; 99283; J1200; J2060; J2405; J7030

== ENCOUNTER 2020-09-23 16:12 | Emergency (ER) | payer MEDICAID ==
[2020-09-23] MEDS ORDERED: Sodium Chloride 0.9% 1,000 ML IV ONE (16:32)
[2020-09-23] MEDS ORDERED: Ondansetron 4 MG/2 ML SDV IVPUSH ONE (16:32)
--- NOTE | 2020-09-23 16:36 | EDM.PDOC ---
ED HPI GENERAL MEDICAL PROBLEM - General Chief Complaint: General Stated Complaint: NAUSEA,VOMITING,POSSIBLE ALCOHOL POISIONING Time Seen by Provider: 09/23/20 16:18 Source of Information: Reports: Patient, RN Notes Reviewed History Limitations: Reports: No Limitations - History of Present Illness INITIAL COMMENTS - FREE TEXT/NARRATIVE: Patient is a 24-year-old female who presents to the ED for evaluation of her nausea and vomiting. Patient notes she went out last night, and drank a small bottle of whiskey, and notes that today she cannot keep anything down, she has tried water and some crackers but nothing is really worked. She thinks she may have had "alcohol poisoning". She is puking up bilious emesis at this time. She denies any fevers or chills, cough or shortness of breath. She denies any encounters with any sick people. She is complaining of some generalized abdomen tenderness, but relates this to the ongoing puking she has been having. There is no focal area of abdomen tenderness. 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 ED EXAM, GENERAL - Physical Exam Exam: See Below Exam Limited By: No Limitations General Appearance: Alert, WD/WN, No Apparent Distress Respiratory/Chest: No Respiratory Distress, Lungs Clear, Normal Breath Sounds, No Accessory Muscle Use, Chest Non-Tender Cardiovascular: Normal Peripheral Pulses, Regular Rate, Rhythm, No Murmur GI/Abdominal: Normal Bowel Sounds, Soft, No Distention, No Mass, Tender (generalized discomfort) Extremities: Normal Inspection, Normal Capillary Refill Neurological: Alert, Oriented, Normal Cognition, No Motor/Sensory Deficits Psychiatric: Normal Affect, Normal Mood Skin Exam: Warm, Dry, Intact, Normal Color, No Rash Course - Vital Signs Last Recorded V/S: Last Vital Signs Temp 97.7 F 09/23/20 16:18 Pulse 80 09/23/20 16:18 Resp 20 09/23/20 16:18 BP 123/80 09/23/20 16:18 Pulse Ox 98 09/23/20 16:18 - Orders/Labs/Meds Orders: Active Orders 24 hr Category Date Time Status Sodium Chloride 0.9% [Normal Saline] 1,000 ml Med 09/23/20 16:32 Active IV ONETIME Medication Orders Sodium Chloride (Normal Saline) 1,000 mls @ 999 mls/hr IV ONETIME ONE Stop: 09/23/20 17:32 Last Admin: 09/23/20 16:36 Dose: 999 mls/hr Documented by: FIFI Labs: Laboratory Tests 09/23/20 Range/Units 16:25 Sodium 144 (136-145) mEq/L Potassium 3.9 (3.5-5.1) mEq/L Chloride 103 (98-107) mEq/L Carbon Dioxide 27 (21-32) mEq/L Anion Gap 17.9 H (5-15) BUN 16 (7-18) mg/dL Creatinine 1.2 H (0.55-1.02) mg/dL Est Cr Clr Drug Dosing 52.66 mL/min Estimated GFR (MDRD) 56 (>60) mL/min BUN/Creatinine Ratio 13.3 L (14-18) Glucose 102 (74-106) mg/dL Calcium 9.7 (8.5-10.1) mg/dL Total Bilirubin 0.5 (0.2-1.0) mg/dL AST 31 (15-37) U/L ALT 32 (14-59) U/L Alkaline Phosphatase 73 (46-116) U/L Total Protein 8.6 H (6.4-8.2) g/dl Albumin 4.9 (3.4-5.0) g/dl Globulin 3.7 gm/dL Albumin/Globulin Ratio 1.3 (1-2) Ethyl Alcohol 0.00 (0.00) gm% Meds: Medications Generic Name Dose Route Start Last Admin Trade Name Freq PRN Reason Stop Dose Admin Sodium Chloride 1,000 mls @ 999 mls/hr 09/23/20 16:32 09/23/20 16:36 Normal Saline IV 09/23/20 17:32 999 mls/hr ONETIME ONE Administration Discontinued Medications Generic Name Dose Route Start Last Admin Trade Name Joeq PRN Reason Stop Dose Admin Ondansetron HCl 4 mg 09/23/20 16:32 09/23/20 16:36 Zofran IVPUSH 09/23/20 16:33 4 mg ONETIME ONE Administration - Re-Assessments/Exams Free Text/Narrative Re-Assessment/Exam: 09/23/20 16:35 Patient presents to the ED for evaluation of her nausea and vomiting. Have ordered some IV fluids, CMP, blood alcohol level, and some Zofran for initial management. 09/23/20 17:15 Patient states she is feeling much better after the fluids and the small amount of Zofran. She will be discharged home after her bag of fluids has been completed. Departure - Departure Time of Disposition: 17:15 Disposition: Home, Self-Care 01 Condition: Good Clinical Impression: Nausea and vomiting in adult - Discharge Information *PRESCRIPTION DRUG MONITORING PROGRAM REVIEWED*: No *COPY OF PRESCRIPTION DRUG MONITORING REPORT IN PATIENT CHANDNI: No Instructions: Nausea and Vomiting, Adult, [id number] Referrals: PCP,None [Primary Care Provider] - Forms: ED Department Discharge Additional Instructions: You were evaluated in the ER today for your nausea and vomiting. You were given some IV fluids and medications to help you stop vomiting and to relieve the dehydration from vomiting. Your labs showed that you were only slightly dehydrated. You have been given some tablets of Zofran, please use 1 tab dissolvable under your tongue every 8 hours as needed for nausea. I recommend that you stick to clear liquids like Gatorade/Powerade or water tonight and advance your diet to a bland diet as tolerated until you can keep food down. Please return to the ED at any time if symptoms change or worsen. Sepsis Event Note (ED) - Evaluation Sepsis Screening Result: No Definite Risk - Focused Exam Vital Signs: Vital Signs Temp Pulse Resp BP Pulse Ox 09/23/20 16:18 97.7 F 80 20 123/80 98 - My Orders Last 24 Hours: My Active Orders 09/23/20 16:32 Sodium Chloride 0.9% [Normal Saline] 1,000 ml IV ONETIME - Assessment/Plan Last 24 Hours: My Active Orders 09/23/20 16:32 Sodium Chloride 0.9% [Normal Saline] 1,000 ml IV ONETIME
== END 2020-09-23 17:40 | disposition home or self-care (01) ==
LOC: JD.ED 16:12
DX: R11.2 Nausea with vomiting, unspecified (principal); J45.909 Unspecified asthma, uncomplicated; F17.210 Nicotine dependence, cigarettes, uncomplicated
CPT/HCPCS: 36415; 80053; 80307; 96374; 99284; J2405; J7030; 99283

== ENCOUNTER 2021-04-22 01:14 | Emergency (ER) | payer MEDICAID ==
[2021-04-22] MEDS ORDERED: LORazepam 2 MG/ML SDV IVPUSH ONE (02:56)
[2021-04-22] MEDS ORDERED: Lactated Ringers 1,000 ML IV ONE (02:56)
[2021-04-22] MEDS ORDERED: diphenhydrAMINE 50 MG/ML SDV IVPUSH ONE (02:56)
--- NOTE | 2021-04-22 02:56 | EDM.PDOC ---
ED HPI GENERAL MEDICAL PROBLEM - General Chief Complaint: Headache Stated Complaint: BAD MIGRAINE Time Seen by Provider: 04/22/21 02:46 - History of Present Illness INITIAL COMMENTS - FREE TEXT/NARRATIVE: 25-year-old female presents the emergency room with a severe headache. This is much like the headache she has had in the past. This started yesterday morning and has not gone away she has tried Tylenol and Motrin with out much success. She is not had any fevers or chills associated with this she has had some nausea minimal vomiting. She has significant photophobia. She has been coming up from the base of her skull up over the top of the head mostly on the right side and into the base of the neck. Patient has no other complaints at this time. Patient denies any recent trauma. 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 Neurological History: Reports: Headaches, Chronic Psychiatric History: Reports: Anxiety, Depression, Suicide Attempt, Suicidal Ideation Social & Family History - Family History Family Medical History: No Pertinent Family History - Tobacco Use Tobacco Use Status *Q: Current Every Day Tobacco User Years of Tobacco use: 10 Packs/Tins Daily: 0.5 - Caffeine Use Caffeine Use: Reports: Coffee, Energy Drinks, Soda, Tea - Recreational Drug Use Recreational Drug Use: No - Living Situation & Occupation Living situation: Reports: Single Occupation: Employed ED ROS GENERAL - Review of Systems Review Of Systems: See Below Constitutional: Reports: No Symptoms HEENT: Reports: Other (Photophobia) Respiratory: Reports: No Symptoms Cardiovascular: Reports: No Symptoms GI/Abdominal: Reports: Nausea, Vomiting : Reports: No Symptoms Musculoskeletal: Reports: Neck Pain Skin: Reports: No Symptoms Neurological: Reports: Headache ED EXAM, GENERAL - Physical Exam Exam: See Below Exam Limited By: No Limitations General Appearance: Alert, No Apparent Distress Eye Exam: Bilateral Eye: Normal Inspection, PERRL Ears: Normal External Exam, Normal Canal, Hearing Grossly Normal, Normal TMs Nose: Normal Inspection, Normal Mucosa, No Blood Throat/Mouth: Normal Inspection, Normal Lips, Normal Teeth, Normal Gums, Normal Oropharynx, Normal Voice, No Airway Compromise Head: Atraumatic, Normocephalic Neck: Other (Patient has marked spasm in the right paraspinous musculature this radiates up over the top of the head to the eye on the right side. Palpation of the muscles at the insertion of the skull aggravates the pain that brought her in this evening). No: Tender Midline Respiratory/Chest: No Respiratory Distress, Lungs Clear, Normal Breath Sounds Cardiovascular: Regular Rate, Rhythm, No Edema, No Murmur GI/Abdominal: Normal Bowel Sounds, Soft, Non-Tender Neurological: Other (Cranial nerves II through XII grossly intact all muscle groups in the upper extremities are equal and appropriate bilaterally deep tendon reflexes at the brachioradialis are equal and appropriate bilaterally cerebellar testing is normal.) Course - Vital Signs Last Recorded V/S: Last Vital Signs Temp 36.6 C 04/22/21 01:25 Pulse 71 04/22/21 01:25 Resp 14 04/22/21 01:25 BP 118/90 04/22/21 01:25 Pulse Ox 97 04/22/21 01:25 - Orders/Labs/Meds Meds: Medications Discontinued Medications Generic Name Dose Route Start Last Admin Trade Name Freq PRN Reason Stop Dose Admin Diphenhydramine HCl 25 mg 04/22/21 02:56 04/22/21 03:10 Diphenhydramine 50 Mg/Ml Sdv IVPUSH 04/22/21 02:57 25 mg ONETIME ONE Administration Lactated Ringer's 1,000 mls @ 999 mls/hr 04/22/21 02:56 04/22/21 03:11 Ringers, Lactated IV 04/22/21 03:56 999 mls/hr .BOLUS ONE Administration Ketorolac Tromethamine 15 mg 04/22/21 03:55 04/22/21 04:01 Ketorolac 15 Mg/Ml Sdv IVPUSH 04/22/21 03:56 15 mg ONETIME ONE Administration Lorazepam 1 mg 04/22/21 02:56 04/22/21 03:11 Lorazepam 2 Mg/Ml Sdv IVPUSH 04/22/21 02:57 1 mg ONETIME ONE Administration - Re-Assessments/Exams Free Text/Narrative Re-Assessment/Exam: 04/22/21 03:55 Patient received a liter of LR this is almost completely and some Zofran Benadryl and Ativan. I went in to check on her and she was sleeping however says the headache is still pretty bad. We will give a little bit of Toradol. The patient denies at this time 04/22/21 04:54 Patient is doing much better we will discharge home to rest. Departure - Departure Time of Disposition: 04:54 Disposition: Home, Self-Care 01 Clinical Impression: Tension headache - Discharge Information Referrals: PCP,None [Primary Care Provider] - Forms: ED Department Discharge Additional Instructions: Return to the emergency room with any questions problems or worsening symptoms. Go home and get sleep. Follow-up in the hospital clinic in 1 week for recheck and to establish care. Sepsis Event Note (ED) - Evaluation Sepsis Screening Result: No Definite Risk - Focused Exam Vital Signs: Vital Signs Temp Pulse Resp BP Pulse Ox 04/22/21 01:25 36.6 C 71 14 118/90 97
[2021-04-22] MEDS ORDERED: Ketorolac 15 MG/ML SDV IVPUSH ONE (03:55)
== END 2021-04-22 05:07 | disposition home or self-care (01) ==
LOC: JD.ED 01:14
DX: G44.209 Tension-type headache, unspecified, not intractable (principal); Z72.0 Tobacco use
CPT/HCPCS: 96374; 96375; 99283; 99283-25; J1200; J1885; J2060; J7120

== ENCOUNTER 2021-05-04 06:14 | Emergency (ER) | payer MEDICAID ==
[2021-05-04] MEDS ORDERED: Sodium Chloride 0.9% 10 ML Syringe FLUSH PRN (06:36)
[2021-05-04] MEDS ORDERED: Ondansetron 4 MG/2 ML SDV IVPUSH ONE (06:36)
--- NOTE | 2021-05-04 06:38 | EDM.PDOCBH ---
<Juan Daniel Sandy - Last Filed: 05/04/21 06:40> ED HPI GENERAL MEDICAL PROBLEM - General Chief Complaint: Drug or Alcohol Abuse Stated Complaint: POSSIBLE ALCOHOL POISIONING Time Seen by Provider: 05/04/21 06:34 Source of Information: Reports: Patient, Family History Limitations: Reports: No Limitations - History of Present Illness INITIAL COMMENTS - FREE TEXT/NARRATIVE: The patient presents for nausea and vomiting. She is concerned she may have alcohol poisoning. She drank 12 to 14 ounces of [place] through the night. She started vomiting about 3 to 4 this morning. She has chills but no fever. She has no chest pain, shortness of breath or cough. She has some abdominal cramping at times. She denies taking any drugs. Onset: Gradual Duration: Hour(s): Location: Reports: Abdomen Quality: Reports: Other (cramping) Severity: Moderate Improves with: Reports: None Worsens with: Reports: None Associated Symptoms: Reports: Fever/Chills, Nausea/Vomiting. Denies: Chest Pain, Cough, Headaches, Shortness of Breath Headache Pain Score (Numeric/FACES): 10 Abdominal Pain Score (Numeric/FACES): 10 - Related Data Allergies Allergy/AdvReac Type Severity Reaction Status Date / Time No Known Allergies Allergy Verified 09/23/20 16:26 Home Meds: Home Meds Albuterol Sulfate [Proventil Hfa] 6.7 gm IH ASDIRECTED PRN 07/23/20 [History] Ondansetron [Zofran] 4 mg BUCCAL Q6H PRN #5 tab 05/04/21 [Rx] Past Medical History Respiratory History: Reports: Asthma [employer] History: Reports: , Spontaneous Neurological History: Reports: Headaches, Chronic Psychiatric History: Reports: Anxiety, Depression, Suicide Attempt, Suicidal Ideation - Infectious Disease History Infectious Disease History: Reports: None Social & Family History - Family History Family Medical History: No Pertinent Family History - Tobacco Use Tobacco Use Status *Q: Current Every Day Tobacco User Years of Tobacco use: 11 Packs/Tins Daily: 1 - Caffeine Use Caffeine Use: Reports: Coffee, Energy Drinks, Soda, Tea - Recreational Drug Use Recreational Drug Use: No - Living Situation & Occupation Living situation: Reports: Single Occupation: Employed ED ROS GENERAL - Review of Systems Review Of Systems: See Below Constitutional: Reports: Chills. Denies: Fever HEENT: Reports: No Symptoms Respiratory: Reports: No Symptoms Cardiovascular: Reports: No Symptoms Endocrine: Reports: No Symptoms GI/Abdominal: Reports: Abdominal Pain, Nausea, Vomiting. Denies: Diarrhea : Reports: No Symptoms Musculoskeletal: Reports: No Symptoms ED EXAM, BEHAVIORAL HEALTH - Physical Exam Exam: See Below Exam Limited By: No Limitations General Appearance: Alert, No Apparent Distress Ears: Normal External Exam Nose: Normal Inspection Head: Atraumatic, Normocephalic Neck: Normal Inspection Respiratory/Chest: No Respiratory Distress, Lungs Clear, Normal Breath Sounds Cardiovascular: Regular Rate, Rhythm, No Edema, No Murmur GI/Abdominal: Soft, No Organomegaly, No Mass, Tender (Mild generalized) Extremities: Normal Inspection COURSE, BEHAVIORAL HEALTH COMP - Course Re-Assessment/Re-Exam: I ordered an IV NS 1L bolus, zofran 4mg IV, labs, ETOH and urine drug screen. It is change of shift. Dr Snads to take over. Departure - Departure Disposition: Home, Self-Care 01 Clinical Impression: Intractable nausea and vomiting, Acute alcoholic gastritis without hemorrhage - Discharge Information Prescriptions: Ondansetron [Zofran] 4 mg BUCCAL Q6H PRN #5 tab PRN Reason: nausea or vomiting Referrals: PCP,None [Primary Care Provider] - Forms: ED Department Discharge Additional Instructions: Evaluation in the emergency room this morning in regards to acute alcohol induced gastritis with intractable nausea and vomiting secondary to inflammation of the stomach. Alcohol is one of the few drugs that is absorbed through the stomach lining. The other is aspirin. This causes a significant inflammation of the lining of the stomach causing the intractable nausea and vomiting. He received 2 L of IV fluids while in the ED due to dehydration. He received Reglan and Zofran for nausea relief. You may need Zofran 4 mg under the tongue every 4 hours for the next 8 to 10 hours to allow the stomach lining to heal. It is also probably worthwhile to cook pickled meat some Pepcid 20 mg strength and take twice daily for the next 3 days to allow the stomach lining to heal. Of course avoid any further alcohol use for the next 5 days to allow the stomach lining in the liver to recover from alcohol intoxication. Plenty of fluids such as Gatorade or Powerade to maintain hydration. Resume diet probably by suppertime tonight. No spicy food. Sepsis Event Note (ED) - Evaluation Sepsis Screening Result: No Definite Risk <El Sands L - Last Filed: 05/04/21 11:39> COURSE, BEHAVIORAL HEALTH COMP - Course Vital Signs: Last Vital Signs Temp 35.9 C L 05/04/21 06:23 Pulse 101 H 05/04/21 06:23 Resp 20 05/04/21 06:23 BP 124/82 05/04/21 06:23 Pulse Ox 100 05/04/21 06:23 Orders, Labs, Meds: Active Orders 24 hr Category Date Time Status Cardiac Monitoring [RC] . DIRECTED Care 05/04/21 06:36 Active Peripheral IV Care [RC] . DIRECTED Care 05/04/21 06:37 Active Dextrose 5%-Lactated Ringers 1,000 ml Med 05/04/21 08:15 Active IV ASDIRECTED Sodium Chloride 0.9% [Normal Saline] 1,000 ml Med 05/04/21 06:45 Active IV .BOLUS Sodium Chloride 0.9% [Saline Flush] Med 05/04/21 06:36 Active 10 ml FLUSH ASDIRECTED PRN ED Antiemetic Medication Reflex [OM.PC] Stat Oth 05/04/21 06:36 Ordered Peripheral IV Insertion Adult [OM.PC] Stat Oth 05/04/21 06:36 Ordered Medication Orders Sodium Chloride (Normal Saline) 1,000 mls @ 1,000 mls/hr IV .BOLUS [facility] Last Admin: 05/04/21 06:45 Dose: 1,000 mls/hr Documented by: EBTO Dextrose/Lactated Ringer's (Dextrose 5%-Lactated Ringers) 1,000 mls @ 999 mls/hr IV ASDIRECTED VICK Last Admin: 05/04/21 08:21 Dose: 999 mls/hr Documented by: CRYSTAL Sodium Chloride (Sodium Chloride 0.9% 10 Ml Syringe) 10 ml FLUSH ASDIRECTED PRN PRN Reason: Keep Vein Open Last Admin: 05/04/21 06:52 Dose: 10 ml Documented by: BETO Laboratory Tests 05/04/21 05/04/21 05/04/21 Range/Units 06:42 06:42 06:42 WBC 12.57 H (3.98-10.04) K/mm3 RBC 5.04 (3.98-5.22) M/mm3 Hgb 15.2 (11.2-15.7) gm/dl Hct 43.9 (34.1-44.9) % MCV 87.1 (79.4-94.8) fl MCH 30.2 (25.6-32.2) pg MCHC 34.6 (32.2-35.5) g/dl RDW Std Deviation 41.2 (36.4-46.3) fL Plt Count 281 (182-369) K/mm3 MPV 9.8 (9.4-12.3) fl Neut % (Auto) 86.4 H (34.0-71.1) % Lymph % (Auto) 10.9 L (19.3-51.7) % [place] % (Auto) 2.2 L (4.7-12.5) % Eos % (Auto) 0.1 L (0.7-5.8) Baso % (Auto) 0.2 (0.1-1.2) % Neut # (Auto) 10.86 H (1.56-6.13) K/mm3 Lymph # (Auto) 1.37 (1.18-3.74) K/mm3 [place] # (Auto) 0.28 (0.24-0.36) K/mm3 Eos # (Auto) 0.01 L (0.04-0.36) K/mm3 Baso # (Auto) 0.02 (0.01-0.08) K/mm3 Manual Slide Review Abnormal smear Sodium 145 (136-145) mEq/L Potassium 4.2 (3.5-5.1) mEq/L Chloride 107 (98-107) mEq/L Carbon Dioxide 20 L (21-32) mEq/L Anion Gap 22.2 H (5-15) BUN 11 (7-18) mg/dL Creatinine 0.9 (0.55-1.02) mg/dL Est Cr Clr Drug Dosing 68.36 mL/min Estimated GFR (MDRD) > 60 (>60) mL/min BUN/Creatinine Ratio 12.2 L (14-18) Glucose 113 H (70-99) mg/dL Calcium 9.3 (8.5-10.1) mg/dL Total Bilirubin 0.3 (0.2-1.0) mg/dL AST 22 (15-37) U/L ALT 18 (14-59) U/L Alkaline Phosphatase 67 (46-116) U/L Total Protein 8.3 H (6.4-8.2) g/dl Albumin 4.5 (3.4-5.0) g/dl Globulin 3.8 gm/dL Albumin/Globulin Ratio 1.2 (1-2) Lipase 77 (73-393) U/L HCG, Qual Negative (NEGATIVE) Urine Color (Yellow) Urine Appearance (Clear) Urine pH (5.0-8.0) Ur Specific [place] (1.005-1.030) Urine Protein (Negative) Urine Glucose (UA) (Negative) Urine Ketones (Negative) Urine Occult Blood (Negative) Urine Nitrite (Negative) Urine Bilirubin (Negative) Urine Urobilinogen (0.2-1.0) Ur Leukocyte Esterase (Negative) U Hyaline Cast (Auto) (0-5) /lpf Urine RBC (0-5) /hpf Urine WBC (0-5) /hpf Ur Squamous Epith Cells (0-5) /hpf Urine Bacteria (FEW) /hpf Urine Mucus (FEW) /hpf Urine Opiates Screen (MKUQVP=395) Ur Buprenorphine Scrn (CUTOFF=10) Ur Oxycodone Screen (AVQ3OJ=499) Urine Methadone Screen (UVKKZI=989) Ur Propoxyphene Screen (GBAXHO=463) Ur Barbiturates Screen (CNBCEE=301) Ur Tricyclics Screen (WIMNKA=579) Ur Phencyclidine Scrn (CUTOFF=25) Ur Amphetamine Screen (ZEUING=124) U Methamphetamines Scrn (FBKRZH=866) U Benzodiazepines Scrn (CKJEPO=981) U Cocaine Metab Screen (YCIQSY=401) U Marijuana (THC) Screen (CUTOFF=50) Ethyl Alcohol 0.07 (0.00) gm% 05/04/21 05/04/21 Range/Units 09:20 09:20 WBC (3.98-10.04) K/mm3 RBC (3.98-5.22) M/mm3 Hgb (11.2-15.7) gm/dl Hct (34.1-44.9) % MCV (79.4-94.8) fl MCH (25.6-32.2) pg MCHC (32.2-35.5) g/dl RDW Std Deviation (36.4-46.3) fL Plt Count (182-369) K/mm3 MPV (9.4-12.3) fl Neut % (Auto) (34.0-71.1) % Lymph % (Auto) (19.3-51.7) % [place] % (Auto) (4.7-12.5) % Eos % (Auto) (0.7-5.8) Baso % (Auto) (0.1-1.2) % Neut # (Auto) (1.56-6.13) K/mm3 Lymph # (Auto) (1.18-3.74) K/mm3 [place] # (Auto) (0.24-0.36) K/mm3 Eos # (Auto) (0.04-0.36) K/mm3 Baso # (Auto) (0.01-0.08) K/mm3 Manual Slide Review Sodium (136-145) mEq/L Potassium (3.5-5.1) mEq/L Chloride (98-107) mEq/L Carbon Dioxide (21-32) mEq/L Anion Gap (5-15) BUN (7-18) mg/dL Creatinine (0.55-1.02) mg/dL Est Cr Clr Drug Dosing mL/min Estimated GFR (MDRD) (>60) mL/min BUN/Creatinine Ratio (14-18) Glucose (70-99) mg/dL Calcium (8.5-10.1) mg/dL Total Bilirubin (0.2-1.0) mg/dL AST (15-37) U/L ALT (14-59) U/L Alkaline Phosphatase (46-116) U/L Total Protein (6.4-8.2) g/dl Albumin (3.4-5.0) g/dl Globulin gm/dL Albumin/Globulin Ratio (1-2) Lipase (73-393) U/L HCG, Qual (NEGATIVE) Urine Color Yellow (Yellow) Urine Appearance Clear (Clear) Urine pH 6.0 (5.0-8.0) Ur Specific [place] 1.025 (1.005-1.030) Urine Protein Negative (Negative) Urine Glucose (UA) 2+ H (Negative) Urine Ketones Trace H (Negative) Urine Occult Blood Negative (Negative) Urine Nitrite Negative (Negative) Urine Bilirubin Negative (Negative) Urine Urobilinogen 0.2 (0.2-1.0) Ur Leukocyte Esterase Negative (Negative) U Hyaline Cast (Auto) 5-10 H (0-5) /lpf Urine RBC 0-5 (0-5) /hpf Urine WBC 0-5 (0-5) /hpf Ur Squamous Epith Cells 0-5 (0-5) /hpf Urine Bacteria Rare (FEW) /hpf Urine Mucus Rare (FEW) /hpf Urine Opiates Screen Negative (AFVEWN=240) Ur Buprenorphine Scrn Negative (CUTOFF=10) Ur Oxycodone Screen Negative (EZD4QP=966) Urine Methadone Screen Negative (WITCCJ=218) Ur Propoxyphene Screen Negative (PQOYGN=383) Ur Barbiturates Screen Negative (YOQLIR=970) Ur Tricyclics Screen Negative (RDMZEZ=207) Ur Phencyclidine Scrn Negative (CUTOFF=25) Ur Amphetamine Screen Negative (XOCYUN=882) U Methamphetamines Scrn Negative (TRAIRY=982) U Benzodiazepines Scrn Negative (HMXCPY=371) U Cocaine Metab Screen Negative (VTPCRY=903) U Marijuana (THC) Screen Presumptive positive H (CUTOFF=50) Ethyl Alcohol (0.00) gm% Medications Generic Name Dose Route Start Last Admin Trade Name Freq PRN Reason Stop Dose Admin Sodium Chloride 1,000 mls @ 1,000 mls/hr 05/04/21 06:45 05/04/21 06:45 Normal Saline IV 1,000 mls/hr .BOLUS VICK Administration Dextrose/Lactated Ringer's 1,000 mls @ 999 mls/hr 05/04/21 08:15 05/04/21 08:21 Dextrose 5%-Lactated Ringers IV 999 mls/hr ASDIRECTED VICK Administration Sodium Chloride 10 ml 05/04/21 06:36 05/04/21 06:52 Sodium Chloride 0.9% 10 Ml Syringe FLUSH 10 ml ASDIRECTED PRN Administration Keep Vein Open Discontinued Medications Generic Name Dose Route Start Last Admin Trade Name Freq PRN Reason Stop Dose Admin Diphenhydramine HCl 12.5 mg 05/04/21 07:15 05/04/21 07:20 Diphenhydramine 50 Mg/Ml Sdv IVPUSH 05/04/21 07:16 12.5 mg ONETIME ONE Administration Lorazepam 0.5 mg 05/04/21 08:15 05/04/21 08:21 Lorazepam 2 Mg/Ml Sdv IVPUSH 05/04/21 08:16 0.5 mg ONETIME ONE Administration Metoclopramide HCl 7.5 mg 05/04/21 07:14 05/04/21 07:20 Metoclopramide 10 Mg/2 Ml Sdv IVPUSH 05/04/21 07:15 7.5 mg ONETIME ONE Administration Ondansetron HCl 4 mg 05/04/21 06:36 05/04/21 06:45 Ondansetron 4 Mg/2 Ml Sdv IVPUSH 05/04/21 06:37 4 mg ONETIME ONE Administration Re-Assessment/Re-Exam Date: 05/04/21 (07:04 Care has been assumed from Dr sandy at change of shift. Hematology is back. Hematology reveals a slightly elevated white count of 12.57 with 86.4% neutrophils reported. Hemoglobin is 15.2 with hematocrit of 43.9 platelet count 281,000.) Re-Assessment/Re-Exam Time: 07:15 (Patient continues to dry heave. Plan we'll give her Reglan 7.5 mg IV with Benadryl 12.5 mg IV to prevent a dystonic reaction) Medical Clearance: 05/04/21 08:14 Patient continues to vomit. Her anion gap remains markedly elevated. Will require a second liter of IV fluid. Will give her Ativan 0.5mg IV. D5 L/R at open. Sodium is 145 with a potassium of 4.2. Chloride is 107 with a bicarb of 20. Anion gap is elevated at 22.2. BUN is 11 with a creatinine of 0.9 and GFR greater than 60. Glucose is 113. Calcium 9.3. Liver function is normal. Total protein slightly elevated at 8.3 with an albumin fraction of 4.5. Lipase is 77 beta hCG serum is negative. Blood alcohol remains slightly elevated at 0.07. Departure - Departure Time of Disposition: 11:36 Condition: Fair - Discharge Information *PRESCRIPTION DRUG MONITORING PROGRAM REVIEWED*: Not Applicable *COPY OF PRESCRIPTION DRUG MONITORING REPORT IN PATIENT CHANDNI: Not Applicable Sepsis Event Note (ED) - Focused Exam Vital Signs: Vital Signs Temp Pulse Resp BP Pulse Ox 05/04/21 06:23 35.9 C L 101 H 20 124/82 100 - My Orders Last 24 Hours: My Active Orders 05/04/21 08:15 Dextrose 5%-Lactated Ringers 1,000 ml IV ASDIRECTED - Assessment/Plan Last 24 Hours: My Active Orders 05/04/21 08:15 Dextrose 5%-Lactated Ringers 1,000 ml IV ASDIRECTED
[2021-05-04] MEDS ORDERED: Sodium Chloride 0.9% 1,000 ML IV SCH (06:45)
[2021-05-04] MEDS ORDERED: Metoclopramide 10 MG/2 ML SDV IVPUSH ONE (07:14)
[2021-05-04] MEDS ORDERED: diphenhydrAMINE 50 MG/ML SDV IVPUSH ONE (07:15)
[2021-05-04] MEDS ORDERED: Dextrose 5%-Lactated Ringers 1,000 ML IV SCH (08:15)
[2021-05-04] MEDS ORDERED: LORazepam 2 MG/ML SDV IVPUSH ONE (08:15)
== END 2021-05-04 11:49 | disposition home or self-care (01) ==
LOC: JD.ED 06:14
DX: K29.20 Alcoholic gastritis without bleeding (principal); R11.2 Nausea with vomiting, unspecified; J45.909 Unspecified asthma, uncomplicated; Z72.0 Tobacco use
CPT/HCPCS: 36415; 80053; 80306; 80307; 81001; 83690; 84703; 85025; 96374; 96375; 99284; J1200; J2060; J2405; J2765; J7030; J7121

== ENCOUNTER 2021-07-23 16:16 | Emergency (ER) | payer MEDICAID ==
--- NOTE | 2021-07-23 18:18 | CR ---
Abdomen: Supine view of the abdomen was obtained. Comparison: No prior abdominal x-ray is available. Bowel gas pattern is normal. No abnormal calcifications or soft tissue abnormality is seen. Minimal scoliosis is noted. Impression: 1. Incidental finding. 2. Nothing acute is seen. Diagnostic code #2
[2021-07-23] MEDS ORDERED: Diatrizoate Meglumine/Diatrizoate Sodium 37% 120 ML Bottle PO ONE (20:01)
[2021-07-23] MEDS ORDERED: Sodium Chloride 0.9% 10 ML Syringe FLUSH PRN (20:01)
[2021-07-23] MEDS ORDERED: Iopamidol 612 MG/ML 100 ML Bottle IVPUSH ONE (20:01)
--- NOTE | 2021-07-23 20:15 | EDM.PDOC ---
ED HPI GENERAL MEDICAL PROBLEM - General Chief Complaint: Abdominal Pain Stated Complaint: ABDOMINAL PAIN VOMITING Time Seen by Provider: 07/23/21 17:30 Source of Information: Reports: Patient, RN Notes Reviewed - History of Present Illness INITIAL COMMENTS - FREE TEXT/NARRATIVE: 25-year-old female presents the emergency department today with complaints of abdominal pain. Patient states this started abruptly while she was at work today. Pain is located in the periumbilical area. She denies any recent fever. She does admit to having some chills over the course the past couple of days. She states that she has had nausea and vomiting throughout the day today. States she has only vomiting up bile colored emesis. She states over the past couple of days she has had several diarrhea stools. She denies any urinary symptoms such as frequency urgency or burning while voiding. She denies the possibility that she could be . States she is otherwise healthy and does not have a primary care provider. Middle Abdomen Pain Score (Numeric/FACES): 8 - Related Data Allergies Allergy/AdvReac Type Severity Reaction Status Date / Time No Known Allergies Allergy Verified 07/23/21 16:32 Home Meds: Home Meds Albuterol Sulfate [Proventil Hfa] 6.7 gm IH ASDIRECTED PRN 07/23/20 [History] predniSONE [Prednisone] 20 mg PO DAILY #4 tablet 07/23/21 [Rx] Past Medical History - Past Health History Medical/Surgical History: Denies Medical/Surgical History Respiratory History: Reports: Asthma INSIDE SALES CONSULTANT History: Reports: , Spontaneous Neurological History: Reports: Headaches, Chronic Psychiatric History: Reports: Anxiety, Depression, Suicide Attempt, Suicidal Ideation - Infectious Disease History Infectious Disease History: Reports: None Social & Family History - Family History Family Medical History: No Pertinent Family History - Tobacco Use Tobacco Use Status *Q: Current Every Day Tobacco User Years of Tobacco use: 6 Packs/Tins Daily: 0.5 - Caffeine Use Caffeine Use: Reports: None - Recreational Drug Use Recreational Drug Use: No - Living Situation & Occupation Living situation: Reports: Single Occupation: Employed ED ROS GENERAL - Review of Systems Review Of Systems: Comprehensive ROS is negative, except as noted in HPI. ED EXAM, GI/ABD - Physical Exam Exam: See Below Exam Limited By: No Limitations General Appearance: Alert, WD/WN, No Apparent Distress Ears: Normal External Exam, Hearing Grossly Normal Nose: Normal Inspection Throat/Mouth: Normal Inspection, Normal Lips, Normal Voice, No Airway Compromise Head: Atraumatic Neck: Normal Inspection, Supple Respiratory/Chest: No Respiratory Distress, Lungs Clear, Normal Breath Sounds, No Accessory Muscle Use, Chest Non-Tender Cardiovascular: Normal Peripheral Pulses, Regular Rate, Rhythm, No Edema, No Murmur GI/Abdominal Exam: Normal Bowel Sounds, Soft, Non-Tender, No Distention (Female) Exam: Deferred Rectal (Female) Exam: Deferred Back Exam: Normal Inspection Extremities: Normal Inspection Neurological: Alert, Oriented, Normal Cognition Psychiatric: Normal Affect, Normal Mood Skin Exam: Warm, Dry, Intact, Normal Color, No Rash Lymphatic: No Adenopathy Course - Vital Signs Text/Narrative:: As stated above, presents with severe sudden onset periumbilical pain. Upon assessment, the patient is curled up in a ball on her stomach in the bed. When she lays on his back to examine her however she does not appear to be in any discomfort. Patient does have positive bowel tones. She has tenderness noted to the right and left lower quadrants and the periumbilical area with palpation. We will obtain a urine test, urinalysis with micro and culture if indicated. We will also obtain a CBC, CMP, magnesium level, C-reactive protein and a flatplate of the abdomen. Last Recorded V/S: Last Vital Signs Temp 98 F 07/23/21 16:30 Pulse 90 07/23/21 16:30 Resp 16 07/23/21 16:30 BP 143/93 H 07/23/21 16:30 Pulse Ox 98 07/23/21 16:30 - Orders/Labs/Meds Orders: Active Orders 24 hr Category Date Time Status Sodium Chloride 0.9% [Saline Flush] Med 07/23/21 20:01 Active 10 ml FLUSH ONETIME PRN Medication Orders Sodium Chloride (Sodium Chloride 0.9% 10 Ml Syringe) 10 ml FLUSH ONETIME PRN PRN Reason: Keep Vein Open Last Admin: 07/23/21 20:33 Dose: 10 ml Documented by: CHARO Labs: Laboratory Tests 07/23/21 07/23/21 07/23/21 Range/Units 16:59 17:00 17:00 WBC 8.31 (3.98-10.04) K/mm3 RBC 5.12 (3.98-5.22) M/mm3 Hgb 15.3 (11.2-15.7) gm/dl Hct 45.3 H (34.1-44.9) % MCV 88.5 (79.4-94.8) fl MCH 29.9 (25.6-32.2) pg MCHC 33.8 (32.2-35.5) g/dl RDW Std Deviation 42.8 (36.4-46.3) fL Plt Count 245 (182-369) K/mm3 MPV 9.7 (9.4-12.3) fl Neut % (Auto) 78.7 H (34.0-71.1) % Lymph % (Auto) 15.5 L (19.3-51.7) % [place] % (Auto) 4.9 (4.7-12.5) % Eos % (Auto) 0.6 L (0.7-5.8) Baso % (Auto) 0.2 (0.1-1.2) % Neut # (Auto) 6.53 H (1.56-6.13) K/mm3 Lymph # (Auto) 1.29 (1.18-3.74) K/mm3 [place] # (Auto) 0.41 H (0.24-0.36) K/mm3 Eos # (Auto) 0.05 (0.04-0.36) K/mm3 Baso # (Auto) 0.02 (0.01-0.08) K/mm3 Sodium 143 (136-145) mEq/L Potassium 4.4 (3.5-5.1) mEq/L Chloride 103 (98-107) mEq/L Carbon Dioxide 29 (21-32) mEq/L Anion Gap 15.4 H (5-15) BUN 10 (7-18) mg/dL Creatinine 0.9 (0.55-1.02) mg/dL Est Cr Clr Drug Dosing 69.83 mL/min Estimated GFR (MDRD) > 60 (>60) mL/min BUN/Creatinine Ratio 11.1 L (14-18) Glucose 93 (70-99) mg/dL Calcium 9.8 (8.5-10.1) mg/dL Total Bilirubin 0.4 (0.2-1.0) mg/dL AST 18 (15-37) U/L ALT 19 (14-59) U/L Alkaline Phosphatase 70 (46-116) U/L Total Protein 8.6 H (6.4-8.2) g/dl Albumin 5.0 (3.4-5.0) g/dl Globulin 3.6 gm/dL Albumin/Globulin Ratio 1.4 (1-2) HCG, Qual (NEGATIVE) Urine Color Yellow (Yellow) Urine Appearance Clear (Clear) Urine pH 6.0 (5.0-8.0) Ur Specific [place] 1.025 (1.005-1.030) Urine Protein Negative (Negative) Urine Glucose (UA) Negative (Negative) Urine Ketones Negative (Negative) Urine Occult Blood Negative (Negative) Urine Nitrite Negative (Negative) Urine Bilirubin Negative (Negative) Urine Urobilinogen 0.2 (0.2-1.0) Ur Leukocyte Esterase Trace H (Negative) Urine RBC 0-5 (0-5) /hpf Urine WBC 0-5 (0-5) /hpf Ur Epithelial Cells 5-10 H (0-5) /hpf Urine Bacteria Few (FEW) /hpf Urine Mucus Not seen (FEW) /hpf 07/23/21 Range/Units 17:00 WBC (3.98-10.04) K/mm3 RBC (3.98-5.22) M/mm3 Hgb (11.2-15.7) gm/dl Hct (34.1-44.9) % MCV (79.4-94.8) fl MCH (25.6-32.2) pg MCHC (32.2-35.5) g/dl RDW Std Deviation (36.4-46.3) fL Plt Count (182-369) K/mm3 MPV (9.4-12.3) fl Neut % (Auto) (34.0-71.1) % Lymph % (Auto) (19.3-51.7) % [place] % (Auto) (4.7-12.5) % Eos % (Auto) (0.7-5.8) Baso % (Auto) (0.1-1.2) % Neut # (Auto) (1.56-6.13) K/mm3 Lymph # (Auto) (1.18-3.74) K/mm3 [place] # (Auto) (0.24-0.36) K/mm3 Eos # (Auto) (0.04-0.36) K/mm3 Baso # (Auto) (0.01-0.08) K/mm3 Sodium (136-145) mEq/L Potassium (3.5-5.1) mEq/L Chloride (98-107) mEq/L Carbon Dioxide (21-32) mEq/L Anion Gap (5-15) BUN (7-18) mg/dL Creatinine (0.55-1.02) mg/dL Est Cr Clr Drug Dosing mL/min Estimated GFR (MDRD) (>60) mL/min BUN/Creatinine Ratio (14-18) Glucose (70-99) mg/dL Calcium (8.5-10.1) mg/dL Total Bilirubin (0.2-1.0) mg/dL AST (15-37) U/L ALT (14-59) U/L Alkaline Phosphatase (46-116) U/L Total Protein (6.4-8.2) g/dl Albumin (3.4-5.0) g/dl Globulin gm/dL Albumin/Globulin Ratio (1-2) HCG, Qual Negative (NEGATIVE) Urine Color (Yellow) Urine Appearance (Clear) Urine pH (5.0-8.0) Ur Specific [place] (1.005-1.030) Urine Protein (Negative) Urine Glucose (UA) (Negative) Urine Ketones (Negative) Urine Occult Blood (Negative) Urine Nitrite (Negative) Urine Bilirubin (Negative) Urine Urobilinogen (0.2-1.0) Ur Leukocyte Esterase (Negative) Urine RBC (0-5) /hpf Urine WBC (0-5) /hpf Ur Epithelial Cells (0-5) /hpf Urine Bacteria (FEW) /hpf Urine Mucus (FEW) /hpf Meds: Medications Generic Name Dose Route Start Last Admin Trade Name Freq PRN Reason Stop Dose Admin Sodium Chloride 10 ml 07/23/21 20:07/23/21 20:33 Sodium Chloride 0.9% 10 Ml Syringe FLUSH 10 ml ONETIME PRN Administration Keep Vein Open Discontinued Medications Generic Name Dose Route Start Last Admin Trade Name Freq PRN Reason Stop Dose Admin Diatrizoate Meglum/Diatrizoate Sod 60 ml 07/23/21 20:07/23/21 20:32 Diatrizoate Meglumine/Diatrizoate Sodium 37% 120 Ml Bottle PO 07/23/21 20:02 60 ml ONETIME ONE Administration Iopamidol 100 ml 07/23/21 20:01 07/23/21 20:33 Iopamidol 612 Mg/Ml 100 Ml Bottle IVPUSH 07/23/21 20:02 100 ml ONETIME ONE Administration Prednisone 20 mg 07/23/21 21:00 Prednisone 20 Mg Tab PO 07/23/21 21:01 ONETIME ONE - Re-Assessments/Exams Free Text/Narrative Re-Assessment/Exam: 07/23/21 18:30 Radiologist impression supine view of the abdomen: 1. Bowel gas pattern is normal. No abnormal calcification or soft tissue abnormality is seen. Minimal scoliosis is noted. 2. Nothing acute is seen. Hematology reveals a WBC of 8.31, hemoglobin 15.3, hematocrit 45.3, platelet count 245 Chemistry reveals a sodium of 143, potassium 4.4, carbon dioxide 29, anion gap 15.4, BUN 10, creatinine 0.9, glucose 93, AST 18, ALT 19, alk phos 70, urine is negative Urinalysis reveals a trace of leukocyte esterase with 5-10 epithelial cells, 0-5 urine WBC We will obtain a CT of the abdomen pelvis with contrast. 07/23/21 20:[address] abdomen pelvis: 1. Increased vascularity around both ovaries compatible with so-called pelvic congestion. 2. Nothing acute is otherwise seen on CT study the abdomen and pelvis. Discussed the case with Dr. Sands and he recommends placing the patient on prednisone 20mg daily for 5 days time. She will need to follow up with her primary care provider or INSIDE SALES CONSULTANT for further evaluation.. Departure - Departure Time of Disposition: 21:06 Disposition: Home, Self-Care 01 Condition: Good Clinical Impression: Pelvic congestion - Discharge Information Prescriptions: predniSONE [Prednisone] 20 mg PO DAILY #4 tablet Referrals: PCP,None [Primary Care Provider] - Forms: ED Department Discharge Additional Instructions: You were seen in the emergency department today with lower abdominal discomfort. Lab work was completed which was not essentially unremarkable. Urinalysis was completed and this was also unremarkable. X-ray of the abdomen was unremarkable as well. CT scan of the abdomen was completed which did show that you have inc reased vascularity around both ovaries compatible with pelvic congestion. While in the emergency department you were given prednisone 20 mg tab. I have sent prescription to your pharmacy for prednisone 20 mg tabs to be taken for another 4 days. Recommend that you follow-up with an FILLER FEEDER for further evaluation. You may take Tylenol 650 mg every 4 hours as needed for discomfort. Sepsis Event Note (ED) - Evaluation Sepsis Screening Result: No Definite Risk - Focused Exam Vital Signs: Vital Signs Temp Pulse Resp BP Pulse Ox 07/23/21 16:30 98 F 90 16 143/93 H 98 - My Orders Last 24 Hours: My Active Orders 07/23/21 20:01 Sodium Chloride 0.9% [Saline Flush] 10 ml FLUSH ONETIME PRN - Assessment/Plan Last 24 Hours: My Active Orders 07/23/21 20:01 Sodium Chloride 0.9% [Saline Flush] 10 ml FLUSH ONETIME PRN
--- NOTE | 2021-07-23 20:54 | CT ---
CT abdomen and pelvis Technique: Multiple axial sections were obtained from above the dome of the diaphragm inferiorly to the pubic symphysis. Intravenous and oral contrast were utilized. Reconstructed coronal and sagittal images were also obtained. Comparison: No prior CT abdomen or pelvis study is available, prior abdominal plain film study performed earlier on the same day (5:57 PM) Findings: Visualized lung bases show nothing acute. Liver contains no focal parenchymal abnormality. Spleen size is normal. Adrenal glands show no nodule. Pancreas is within normal limits. Kidneys show contrast enhancement with no hydronephrosis or mass being seen. Gallbladder contains no calcified gallstones. Abdominal aorta shows no aneurysm. No retroperitoneal adenopathy is seen. Slightly prominent pelvic vasculature is seen around both ovaries which is felt compatible with mild pelvic congestion. Appendix is seen which is normal in size. Delayed images show contrast within the left ureter and within the bladder. Bone window settings were reviewed. No abnormality is seen for the patient's age. Impression: 1. Increased vascularity around both ovaries compatible with so-called pelvic congestion. 2. Nothing acute is otherwise seen on CT study of the abdomen and pelvis. Diagnostic code #2
[2021-07-23] MEDS ORDERED: predniSONE 20 MG Tab PO ONE (21:00)
== END 2021-07-23 21:21 | disposition home or self-care (01) ==
LOC: JD.ED 16:16 → SUPCPDRO 16:16 → JD.ED 21:21
DX: R10.2 Pelvic and perineal pain (principal); R10.815 Periumbilic abdominal tenderness; J45.909 Unspecified asthma, uncomplicated; Z72.0 Tobacco use
CPT/HCPCS: 36415; 74018; 74177; 80053; 81001; 84703; 85025; 99284; J7512; Q9963; Q9967

== ENCOUNTER 2021-09-10 17:11 | Emergency (ER) | payer MEDICAID ==
[2021-09-10] MEDS ORDERED: Sodium Chloride 0.9% 10 ML Syringe FLUSH PRN (17:48)
--- NOTE | 2021-09-10 17:55 | EDM.PDOC ---
ED HPI GENERAL MEDICAL PROBLEM - General Chief Complaint: STONEWORKING BELT SANDER Problem Stated Complaint: HEAVY VAGINAL BLEEDING/CLOTTING Time Seen by Provider: 09/10/21 17:40 Source of Information: Reports: Patient, RN Notes Reviewed History Limitations: Reports: No Limitations - History of Present Illness INITIAL COMMENTS - FREE TEXT/NARRATIVE: Patient is a 25-year-old female who presents to the ER for her low pelvic discomfort and heavy vaginal bleeding. Patient states that she has irregular periods, and does receive a Depo shot. States that her last Depo shot was at the beginning of July and she had a negative test before this. She is not sure if she will be after this. She has not taken another test since her Depo shot. The patient has been having low abdomen pain/pressure, so much that it feels as if she is "giving " but not as drastic. She was taking some Advil and Tylenol for this and states the pain does subside a little bit when she does this. Patient is a G2, with a spontaneous miscarriage. Patient states that the only time she is felt pain like this in the past, is when she had her spontaneous miscarriage. She is also concerned as well because she is Rh- for blood typing purposes. Patient's STONEWORKING BELT SANDER is Dr. Malik and she did state that she try to call her doctor but the office was too busy and she was not able to see her doctor today. The patient also did pass some sort of clot-like material, that she did present to the ER with in a Ziploc bag. States that she has bled through 10 pads today. She is not feeling any sort of dizziness or lightheadedness at this time. Treatments FINANCE EXECUTIVE: Reports: Other (see below) Other Treatments FINANCE EXECUTIVE: advil/tylenol Lower Abdomen Pain Score (Numeric/FACES): 7 Vaginal Pain Score (Numeric/FACES): 6 Rectal Pain Score (Numeric/FACES): 6 - Related Data Allergies Allergy/AdvReac Type Severity Reaction Status Date / Time No Known Allergies Allergy Verified 07/23/21 16:32 Home Meds: Home Meds Albuterol Sulfate [Proventil Hfa] 6.7 gm IH ASDIRECTED PRN 07/23/20 [History] medroxyPROGESTERone Acetate [Depo-Provera] 1 injection INJECT Q3M 09/10/21 [History] medroxyPROGESTERone [Provera] 10 mg PO DAILY #10 tab 09/10/21 [Rx] Past Medical History - Past Health History Medical/Surgical History: Denies Medical/Surgical History Respiratory History: Reports: Asthma STONEWORKING BELT SANDER History: Reports: , Spontaneous Other STONEWORKING BELT SANDER History: irregular menstrual cycle and issues wih bleeding Neurological History: Reports: Headaches, Chronic Psychiatric History: Reports: Anxiety, Depression, Suicide Attempt, Suicidal Ideation - Infectious Disease History Infectious Disease History: Reports: None - Past Surgical History Female Surgical History: Reports: D&C Social & Family History - Family History Family Medical History: No Pertinent Family History - Tobacco Use Tobacco Use Status *Q: Current Every Day Tobacco User Years of Tobacco use: 12 Packs/Tins Daily: 0.2 - Caffeine Use Caffeine Use: Reports: Coffee, Energy Drinks, Soda - Recreational Drug Use Recreational Drug Use: No - Living Situation & Occupation Living situation: Reports: Single Occupation: Employed ED ROS GENERAL - Review of Systems Review Of Systems: Comprehensive ROS is negative, except as noted in HPI. ED EXAM, RENAL/ - Physical Exam Exam: See Below Exam Limited By: No Limitations General Appearance: Alert, WD/WN, No Apparent Distress Respiratory/Chest: No Respiratory Distress, Lungs Clear, Normal Breath Sounds, No Accessory Muscle Use, Chest Non-Tender Cardiovascular: Normal Peripheral Pulses, Regular Rate, Rhythm, No Edema GI/Abdominal: Normal Bowel Sounds, Soft, No Distention, No Mass, Tender (low pelvic discomfort) Extremities: Normal Inspection, Normal Capillary Refill Neurological: Alert, Oriented, Normal Cognition, No Motor/Sensory Deficits Psychiatric: Normal Affect, Normal Mood Skin Exam: Warm, Dry, Intact, Normal Color, No Rash Course - Vital Signs Last Recorded V/S: Last Vital Signs Temp 97.4 F 09/10/21 17:38 Pulse 88 09/10/21 17:38 Resp 20 09/10/21 17:38 BP 119/86 09/10/21 17:38 Pulse Ox 98 09/10/21 17:38 - Orders/Labs/Meds Orders: Active Orders 24 hr Category Date Time Status Peripheral IV Care [RC] . DIRECTED Care 09/10/21 17:48 Ordered ABO/RH TYPE [BBK] Stat Lab 09/10/21 17:53 Ordered Sodium Chloride 0.9% [Saline Flush] Med 09/10/21 17:48 Ordered 10 ml FLUSH ASDIRECTED PRN Peripheral IV Insertion Adult [OM.PC] Routine Oth 09/10/21 17:48 Ordered Medication Orders Sodium Chloride (Sodium Chloride 0.9% 10 Ml Syringe) 10 ml FLUSH ASDIRECTED PRN PRN Reason: Keep Vein Open Last Admin: 09/10/21 18:44 Dose: 10 ml Documented by: ANDRES Labs: Laboratory Tests 09/10/21 09/10/21 09/10/21 Range/Units 18:25 18:25 18:25 WBC 12.53 H (3.98-10.04) K/mm3 RBC 4.40 (3.98-5.22) M/mm3 Hgb 13.1 D (11.2-15.7) gm/dl Hct 38.3 (34.1-44.9) % MCV 87.0 (79.4-94.8) fl MCH 29.8 (25.6-32.2) pg MCHC 34.2 (32.2-35.5) g/dl RDW Std Deviation 39.5 (36.4-46.3) fL Plt Count 238 (182-369) K/mm3 MPV 9.4 (9.4-12.3) fl Neut % (Auto) 79.7 H (34.0-71.1) % Lymph % (Auto) 13.8 L (19.3-51.7) % [place] % (Auto) 5.7 (4.7-12.5) % Eos % (Auto) 0.4 L (0.7-5.8) Baso % (Auto) 0.2 (0.1-1.2) % Neut # (Auto) 9.99 H (1.56-6.13) K/mm3 Lymph # (Auto) 1.73 (1.18-3.74) K/mm3 [place] # (Auto) 0.72 H (0.24-0.36) K/mm3 Eos # (Auto) 0.05 (0.04-0.36) K/mm3 Baso # (Auto) 0.02 (0.01-0.08) K/mm3 Sodium 141 (136-145) mEq/L Potassium 3.9 (3.5-5.1) mEq/L Chloride 107 (98-107) mEq/L Carbon Dioxide 26 (21-32) mEq/L Anion Gap 11.9 (5-15) BUN 10 (7-18) mg/dL Creatinine 0.9 (0.55-1.02) mg/dL Est Cr Clr Drug Dosing 69.83 mL/min Estimated GFR (MDRD) > 60 (>60) mL/min BUN/Creatinine Ratio 11.1 L (14-18) Glucose 85 (70-99) mg/dL Calcium 8.9 (8.5-10.1) mg/dL Total Bilirubin 0.5 (0.2-1.0) mg/dL AST 13 L (15-37) U/L ALT 14 (14-59) U/L Alkaline Phosphatase 60 (46-116) U/L Total Protein 7.4 (6.4-8.2) g/dl Albumin 3.9 (3.4-5.0) g/dl Globulin 3.5 gm/dL Albumin/Globulin Ratio 1.1 (1-2) HCG, Qual Negative (NEGATIVE) Meds: Medications Generic Name Dose Route Start Last Admin Trade Name Freq PRN Reason Stop Dose Admin Sodium Chloride 10 ml 09/10/21 17:48 09/10/21 18:44 Sodium Chloride 0.9% 10 Ml Syringe FLUSH 10 ml ASDIRECTED PRN Administration Keep Vein Open - Re-Assessments/Exams Free Text/Narrative Re-Assessment/Exam: 09/10/21 17:57 Patient presents to the ER for the evaluation of her vaginal bleeding. We will go ahead first that established if she has been or not as she did bring in some clot-like material suspicious for past products of conception or otherwise. We will get some basic labs as well for further evaluation. If patient was indeed , she is Rh- blood type and would need RhoGam. 09/10/21 19:10 Patient's test is negative. Patient already had abdomen scanning done at a prior facility and it showed pelvic congestion. Hemoglobin is within normal limits at this time. I will talk with STONEWORKING BELT SANDER transportation department supervisor to see if there is any major concerns or other considerations I do plan to send the patient home with course of Provera for her dysfunctional uterine bleeding. Departure - Departure Time of Disposition: 19:17 Disposition: Home, Self-Care 01 Condition: Good Clinical Impression: Dysfunctional uterine bleeding - Discharge Information *PRESCRIPTION DRUG MONITORING PROGRAM REVIEWED*: No *COPY OF PRESCRIPTION DRUG MONITORING REPORT IN PATIENT CHANDNI: No Instructions: Abnormal Uterine Bleeding, [id number] Referrals: Ammy Malik MD [Primary Care Provider] - Forms: ED Department Discharge, ED Return to Work/School Form Additional Instructions: You were evaluated in the ER today for your vaginal bleeding and pelvic discomfort. Your hCG test done at today's visit was negative. Laboratory evaluation was unremarkable forblood loss that would require transfusion at this time. Please keep an eye on the amount of bleeding you are having, if you should have any sort increasing dizziness/lightheadedness, or change in color where you are very pale you should return to clinical care for ongoing management for repeat labs. Your case was discussed with on-call STONEWORKING BELT SANDER and they do recommend placing you on Provera for ongoing management. This medication was electronically prescribed to the [facility] located in the [facility]. I would recommend that you follow-up with your STONEWORKING BELT SANDER, Dr. Malik sometime this week to make sure that symptoms are getting better as expected. Recommend you take 400 to 600 mg ibuprofen every 6 hours as needed for ongoing pain or discomfort. Sepsis Event Note (ED) - Focused Exam Vital Signs: Vital Signs Temp Pulse Resp BP Pulse Ox 09/10/21 17:38 97.4 F 88 20 119/86 98 - My Orders Last 24 Hours: My Active Orders 09/10/21 17:48 Peripheral IV Care [RC] . DIRECTED Sodium Chloride 0.9% [Saline Flush] 10 ml FLUSH ASDIRECTED PRN Peripheral IV Insertion Adult [OM.PC] Routine 09/10/21 17:53 ABO/RH TYPE [BBK] Stat - Assessment/Plan Last 24 Hours: My Active Orders 09/10/21 17:48 Peripheral IV Care [RC] . DIRECTED Sodium Chloride 0.9% [Saline Flush] 10 ml FLUSH ASDIRECTED PRN Peripheral IV Insertion Adult [OM.PC] Routine 09/10/21 17:53 ABO/RH TYPE [BBK] Stat
== END 2021-09-10 20:04 | disposition home or self-care (01) ==
LOC: SUPCPDRO 17:11 → JD.ED 17:11
DX: N93.8 Other specified abnormal uterine and vaginal bleeding (principal); J45.909 Unspecified asthma, uncomplicated; Z72.0 Tobacco use; Z79.899 Other long term (current) drug therapy
CPT/HCPCS: 36415; 80053; 84703; 85025; 86900; 86901; 99284

== ENCOUNTER 2021-09-24 14:01 | Emergency (ER) | payer MEDICAID ==
[2021-09-24] MEDS ORDERED: Albuterol 6.7 GM Inhaler INH ONE (14:45)
--- NOTE | 2021-09-24 14:50 | EDM.PDOC ---
ED HPI GENERAL MEDICAL PROBLEM - General Chief Complaint: Respiratory Problem Stated Complaint: SOB Time Seen by Provider: 09/24/21 14:33 Source of Information: Reports: Patient, RN Notes Reviewed History Limitations: Reports: No Limitations - History of Present Illness INITIAL COMMENTS - FREE TEXT/NARRATIVE: Patient is a 25-year-old female presents to the ER for evaluation of her shortness of breath. States that this developed last night, that seem to be of sudden onset. She had some right-sided chest discomfort and shortness of breath so she took her albuterol inhaler. States that she is subsequently out of her inhaler due to using it last night. States that the wheezing seemed to subside but she was not able to get that relief from a deep breath. She feels just mildly short of breath, but is not in any acute respiratory distress, she has some nasal congestion as well associated. No fevers no chills no increased cough, no nausea/vomiting/diarrhea. States that she has been exposed to someone with COVID-19 roughly 2 weeks ago. She has not been vaccinated for COVID-19. Other than asthma and "pelvic congestion" denying any medical history. Right Chest Pain Score (Numeric/FACES): 5 - Related Data Allergies Allergy/AdvReac Type Severity Reaction Status Date / Time No Known Allergies Allergy Verified 07/23/21 16:32 Home Meds: Home Meds Albuterol Sulfate [Proventil Hfa] 6.7 gm IH ASDIRECTED PRN 07/23/20 [History] medroxyPROGESTERone Acetate [Depo-Provera] 1 injection INJECT Q3M 09/10/21 [History] medroxyPROGESTERone [Provera] 10 mg PO DAILY #10 tab 09/10/21 [Rx] Albuterol [Proventil Neb Soln] 2.5 mg NEB QIDRT PRN #1 box 09/24/21 [Rx] predniSONE 20 mg PO ASDIRECTED #10 tab 09/24/21 [Rx] Past Medical History Respiratory History: Reports: Asthma [employer]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: Dysfunctional Uterine Bleeding, , Spontaneous , Other (See Below) Other [employer]A OPERATIONS MANAGER History: states Pelvic congestion Neurological History: Reports: Headaches, Chronic Psychiatric History: Reports: Anxiety, Depression, Suicide Attempt, Suicidal Ideation - Past Surgical History Female Surgical History: Reports: D&C Social & Family History - Family History Family Medical History: No Pertinent Family History - Tobacco Use Tobacco Use Status *Q: Never Tobacco User - Caffeine Use Caffeine Use: Reports: Coffee, Energy Drinks, Soda - Living Situation & Occupation Living situation: Reports: Single Occupation: Employed ED ROS GENERAL - Review of Systems Review Of Systems: Comprehensive ROS is negative, except as noted in HPI. ED EXAM, GENERAL - Physical Exam Exam: See Below Exam Limited By: No Limitations General Appearance: Alert, WD/WN, No Apparent Distress Respiratory/Chest: No Respiratory Distress, Lungs Clear, Normal Breath Sounds, No Accessory Muscle Use, Chest Non-Tender Cardiovascular: Normal Peripheral Pulses, Regular Rate, Rhythm, No Edema Extremities: Normal Inspection, Normal Capillary Refill Neurological: Alert, Oriented, Normal Cognition, No Motor/Sensory Deficits Psychiatric: Normal Affect, Normal Mood Skin Exam: Warm, Dry, Intact, Normal Color, No Rash Course - Vital Signs Last Recorded V/S: Last Vital Signs Temp 98.5 F 09/24/21 14:30 Pulse 99 09/24/21 14:30 Resp 18 09/24/21 14:30 BP 118/79 09/24/21 14:30 Pulse Ox 99 09/24/21 14:30 - Orders/Labs/Meds Orders: Active Orders 24 hr Category Date Time Status RT Post Treatment Assessment [RC] Click to Edit Care 09/24/21 14:45 Ordered RT Pre-Treatment Assessment [RC] Click to Edit Care 09/24/21 14:45 Ordered Labs: Laboratory Tests 09/24/21 Range/Units 15:00 SARS-CoV-2 RNA (JULES) Negative (NEGATIVE) Meds: Medications Discontinued Medications Generic Name Dose Route Start Last Admin Trade Name Araceli PRN Reason Stop Dose Admin Albuterol 0 gm 09/24/21 14:45 09/24/21 14:59 Albuterol 6.7 Gm Inhaler INH 09/24/21 14:46 2 puff ONETIME ONE Administration - Re-Assessments/Exams Free Text/Narrative Re-Assessment/Exam: 09/24/21 14:49 Patient presents to the ER for evaluation of her shortness of breath. We will go ahead and get her an albuterol inhaler to try while in the ER to see if this helps. Check for COVID-19 and get a chest x-ray for evaluation. 09/24/21 16:37 Patient's COVID-19 screen and influenza screen are negative for today's visit. States that the albuterol inhaler did help quite a bit. We will go ahead and treat her for asthma exacerbation, we will give her some oral steroids, and a prescription for albuterol nebulizers as well for ongoing management. Departure - Departure Time of Disposition: 16:38 Disposition: Home, Self-Care 01 Condition: Good Clinical Impression: Exacerbation of asthma Qualifiers: Asthma severity: mild Asthma persistence: unspecified Qualified Code(s): J45.901 - Unspecified asthma with (acute) exacerbation - Discharge Information *PRESCRIPTION DRUG MONITORING PROGRAM REVIEWED*: No *COPY OF PRESCRIPTION DRUG MONITORING REPORT IN PATIENT CHANDNI: No Referrals: PCP,None [Primary Care Provider] - Forms: ED Department Discharge, ED Return to Work/School Form Additional Instructions: You were evaluated in the ER today for your shortness of breath. Your COVID-19 screen did come back negative for today's purposes. The chest x-ray performed at today's visit also was without acute changes. You are not suffering from any sort of pneumonia or other worrisome illness. It does appear that you are suffering from an acute exacerbation of your asthma. Please continue to use albuterol inhaler as prescribed. You were given a prescription for albuterol nebulizers, you may use 1 Neb up to every 4 hours as needed for ongoing management. You were also given a prescription for prednisone, you may take 1 tablet 2 times a day for the next 5 days. This medication was electronically sent to the [place] pharmacy located in the [facility] grocery store. Please monitor your symptoms, if things seem to be getting better over the next few days, you do not need to retest for COVID-19 but if they seem to worsen or change, I would strongly recommend that you get retested for COVID-19 once again. Do not hesitate to return to the ER at any time if symptoms change or worsen. Sepsis Event Note (ED) - Evaluation Sepsis Screening Result: No Definite Risk - Focused Exam Vital Signs: Vital Signs Temp Pulse Resp BP Pulse Ox 09/24/21 14:30 98.5 F 99 18 118/79 99 - My Orders Last 24 Hours: My Active Orders 09/24/21 14:45 RT Post Treatment Assessment [RC] Click to Edit RT Pre-Treatment Assessment [RC] Click to Edit - Assessment/Plan Last 24 Hours: My Active Orders 09/24/21 14:45 RT Post Treatment Assessment [RC] Click to Edit RT Pre-Treatment Assessment [RC] Click to Edit
--- NOTE | 2021-09-24 15:14 | CR ---
Chest: Portable view of the chest was obtained. Comparison: Prior chest x-ray of 11/06/19. Heart size and mediastinum are normal. Lungs are clear with no acute parenchymal change. Bony structures show nothing acute. Impression: 1. Nothing acute is seen on portable chest x-ray. Diagnostic code #1
== END 2021-09-24 17:01 | disposition home or self-care (01) ==
LOC: JD.ED 14:01
DX: J45.901 Unspecified asthma with (acute) exacerbation (principal); Z20.822 Contact with and (suspected) exposure to COVID-19
CPT/HCPCS: 71045; 71045-26; 87804; 99285-25; A9270-GY; U0002

== ENCOUNTER 2022-03-16 16:18 | Emergency (ER) | payer MEDICAID ==
[2022-03-16] MEDS ORDERED: Promethazine 25 MG in Sodium Chloride 0.9% 50 ML IV ONE (16:45)
[2022-03-16] MEDS ORDERED: Sodium Chloride 0.9% 1,000 ML IV ONE (16:45)
[2022-03-16] MEDS ORDERED: Sodium Chloride 0.9% 10 ML Syringe FLUSH PRN (16:45)
[2022-03-16] MEDS ORDERED: Ondansetron 4 MG/2 ML SDV IVPUSH ONE (18:41)
[2022-03-16] MEDS ORDERED: diphenhydrAMINE 50 MG/ML SDV IVPUSH ONE (18:41)
== END 2022-03-16 20:03 | disposition home or self-care (01) ==
LOC: JD.ED 16:18
DX: O21.9 Vomiting of pregnancy, unspecified (principal); J45.909 Unspecified asthma, uncomplicated; Z3A.01 Less than 8 weeks gestation of pregnancy; Z79.899 Other long term (current) drug therapy
CPT/HCPCS: 36415; 80053; 83735; 85025; 96365; 96375; 99284; J1200; J2405; J2550; J3490; J7030; 99283

== ENCOUNTER 2022-03-29 10:27 | Emergency (ER) | payer SELFPAY ==
[2022-03-29] MEDS ORDERED: Sodium Chloride 0.9% 1,000 ML IV STA (11:09)
[2022-03-29] MEDS ORDERED: Ondansetron 4 MG/2 ML SDV IVPUSH ONE (11:09)
[2022-03-29] MEDS ORDERED: Sodium Chloride 0.9% 10 ML Syringe FLUSH PRN (11:10)
== END 2022-03-29 13:10 | disposition home or self-care (01) ==
LOC: SUPCPDRO 10:27 → JD.ED 10:27
DX: O21.9 Vomiting of pregnancy, unspecified (principal); Z3A.08 8 weeks gestation of pregnancy; Z72.0 Tobacco use
CPT/HCPCS: 36415; 80053; 81001; 85025; 86140; 96374; 99284; J2405; J3490; J7030

== ENCOUNTER 2022-04-08 15:24 | Emergency (ER) | payer BC | END 2022-04-08 19:12 | disposition home or self-care (01) | LOC: JD.ED 15:24 | DX: O20.0 Threatened abortion (principal); J45.909 Unspecified asthma, uncomplicated; Z79.899 Other long term (current) drug therapy; Z3A.09 9 weeks gestation of pregnancy | CPT/HCPCS: 36415; 76815; 76815-26; 81001; 84702; 85025; 99284-25 ==

== ENCOUNTER 2022-04-11 19:49 | Emergency (ER) | payer MEDICAID | END 2022-04-11 20:37 | disposition home or self-care (01) | LOC: JD.ED 19:49 | DX: K59.00 Constipation, unspecified (principal); J45.909 Unspecified asthma, uncomplicated; Z79.899 Other long term (current) drug therapy | CPT/HCPCS: 99283 ==

== ENCOUNTER 2022-05-05 15:36 | Emergency (ER) | payer MEDICAID ==
[2022-05-05] MEDS ORDERED: Ondansetron 4 MG/2 ML SDV IVPUSH ONE (16:26)
[2022-05-05] MEDS ORDERED: Sodium Chloride 0.9% 10 ML Syringe FLUSH PRN (16:26)
[2022-05-05] MEDS ORDERED: Sodium Chloride 0.9% 1,000 ML IV SCH (16:30)
[2022-05-05 17:17] LABS: ESTIMATED GFR > 60 mL/min (>60)
[2022-05-05] MEDS ORDERED: HYDROmorphone 0.5 MG/0.5 ML Syringe IVPUSH ONE (17:58)
== END 2022-05-05 18:50 | disposition home or self-care (01) ==
LOC: JD.ED 15:36
DX: O99.892 Other specified diseases and conditions complicating childbirth (principal); R11.0 Nausea; U07.1 COVID-19; Z3A.14 14 weeks gestation of pregnancy; Z79.899 Other long term (current) drug therapy; Z87.891 Personal history of nicotine dependence
CPT/HCPCS: 36415; 80053; 85025; 87635; 96361; 96374; 96375; 99284; J1170; J2405; J3490; J7030; U0002

== ENCOUNTER 2022-05-08 01:12 | Emergency (ER) | payer MEDICAID ==
[2022-05-08] MEDS ORDERED: LORazepam 1 MG Tab PO ONE (02:31)
== END 2022-05-08 03:56 | disposition home or self-care (01) ==
LOC: JD.ED 01:12
DX: O9A.23 Injury, poisoning and certain other consequences of external causes complicating the puerperium (principal); O98.512 Other viral diseases complicating pregnancy, second trimester; U07.1 COVID-19; T48.6X5A Adverse effect of antiasthmatics, initial encounter; O99.282 Endocrine, nutritional and metabolic diseases complicating pregnancy, second trimester; E83.42 Hypomagnesemia; R94.6 Abnormal results of thyroid function studies; Z28.310 Unvaccinated for COVID-19; Z86.16 Personal history of COVID-19; Z87.891 Personal history of nicotine dependence; Z3A.00 Weeks of gestation of pregnancy not specified
CPT/HCPCS: 36415; 36600; 71046; 80053; 81001; 82803; 83735; 83880; 84443; 84484; 85007; 85027; 85379; 93005; 99285; A9270

== ENCOUNTER 2022-10-25 23:41 | Inpatient (IN) | payer MEDICAID ==
[2022-10-26] MEDS ORDERED: Bupivacaine 0.25% 10 ML SDV ONE
[2022-10-26] MEDS ORDERED: Lidocaine 1% 10 ML MDV ONE
[2022-10-26] MEDS ORDERED: Oxytocin/Lactated Ringers 10 UNIT/1,000 ML BAG IV SCH ×2 (00:30)
[2022-10-26] MEDS ORDERED: Ondansetron 4 MG/2 ML SDV IVPUSH PRN (00:30)
[2022-10-26] MEDS ORDERED: Lidocaine 1% 50 ML MDV INJECT ONE (00:30)
[2022-10-26] MEDS ORDERED: Sodium Chloride 0.9% 10 ML Syringe FLUSH PRN (00:30)
[2022-10-26] MEDS ORDERED: Lactated Ringers 1,000 ML IV SCH (00:30)
[2022-10-26] MEDS ORDERED: Nalbuphine HCl 10 MG/ 1ML Amp IVPUSH PRN (00:30)
[2022-10-26] MEDS ORDERED: ePHEDrine 50 MG/ML SDV IVPUSH PRN (01:10)
[2022-10-26] MEDS ORDERED: Bupivacaine/fentaNYL/NS 100 ML Bag EPIDUR PRN (01:10)
[2022-10-26] MEDS ORDERED: diphenhydrAMINE 50 MG/ML SDV IVPUSH PRN (01:10)
[2022-10-26] MEDS ORDERED: fentaNYL 100 MCG/2 ML SDV EPIDUR PRN (01:10)
[2022-10-26] MEDS ORDERED: Albuterol 6.7 GM Inhaler INH PRN ×2 (03:49)
[2022-10-26] MEDS ORDERED: Benzocaine/Menthol 20%-0.5% Spray 78 GM Cannister TOP PRN (04:02)
[2022-10-26] MEDS ORDERED: Witch Hazel Medicated Pads 40/Jar TOP PRN (04:02)
[2022-10-26] MEDS: Ibuprofen 600 MG Tab PO PRN ×3 (06:39→20:58)
[2022-10-26] MEDS: Acetaminophen 325 MG Tab PO PRN ×3 (06:39→21:02)
[2022-10-26] MEDS: Prenatal Multivitamin with Calcium/Folic Acid/Iron Tab PO SCH (08:27)
[2022-10-26] MEDS: Docusate Sodium 100 MG Cap PO PRN ×2 (08:44→21:02)
[2022-10-26] MEDS: oxyCODONE 5 MG Tab PO PRN ×2 (08:44→17:58)
[2022-10-26] MEDS ORDERED: Sodium Chloride 0.9% 10 ML Syringe FLUSH SCH (09:00)
[2022-10-27] MEDS: Prenatal Multivitamin with Calcium/Folic Acid/Iron Tab PO SCH (12:00)
[2022-10-27] MEDS: oxyCODONE 5 MG Tab PO PRN (12:00)
[2022-10-27] MEDS: Ibuprofen 600 MG Tab PO PRN (12:01)
== END 2022-10-27 12:00 | disposition home or self-care (01) | DRG 807 ==
LOC: JD.OBCHECK 23:41 → JD.OB 23:44 → JD.OBCHECK 10-26 00:26 → JD.OB 10-26 00:27 → OBSVTOIN 10-26 02:27 → JD.OB 10-26 02:39
PROVIDERS: ADMIT Obstetrics & Gynecology; ATTEND Obstetrics & Gynecology
PROC: 10E0XZZ Delivery of Products of Conception, External Approach (ICD-10-PCS; principal; 2022-10-26)
PROC: 3E0R3BZ Introduction of Anesthetic Agent into Spinal Canal, Percutaneous Approach (ICD-10-PCS; 2022-10-26)
DX: O99.52 Diseases of the respiratory system complicating childbirth (principal); Z37.0 Single live birth; Z3A.38 38 weeks gestation of pregnancy; Z86.16 Personal history of COVID-19; Z87.891 Personal history of nicotine dependence
CPT/HCPCS: 36415; 51701; 59025; 59409; 84112; 85025; 86592; 86850; 86900; 86901; A9270-GY; J2590; J3010; J3490; J7120

== ENCOUNTER 2024-06-19 15:07 | Emergency (ER) | payer MEDICAID ==
[2024-06-19 16:14] LABS: BASOPHILS PERCENT AUTO 0.4 % (0.0-1.0); EOSINOPHILS PERCENT AUTO 0.3 % (0.0-6.0); HEMATOCRIT 40.9 % (37.0-47.0); HEMOGLOBIN 13.7 gm/dl (12.0-16.0); IMMATURE GRAN ABSOLUTE AUTO 0.03 K/mm3 (0.00-0.05); IMMATURE GRAN PERCENT AUTO 0.3 % (0.0-0.4); LYMPHOCYTES ABSOLUTE AUTO 1.2 K/mm3 (1.0-4.8); LYMPHOCYTES PERCENT AUTO 11.8 % (24.0-44.0); MEAN CORPUSCULAR HGB CONC 33.5 g/dl (32.0-36.0); MEAN CORPUSCULAR VOLUME 86.7 fl (83.0-99.0); MEAN PLATELET VOLUME 9.4 fl (9.4-12.3); MONOCYTES ABSOLUTE AUTO 0.4 K/mm3 (0.0-0.8); MONOCYTES PERCENT AUTO 3.6 % (0.0-8.0); NEUTROPHILS ABSOLUTE AUTO 8.5 K/mm3 (1.8-7.7); NEUTROPHILS PERCENT AUTO 83.6 % (41.0-71.0); PLATELET COUNT,PLT 252 K/mm3 (150-400); RED BLOOD CELL COUNT 4.72 M/mm3 (4.10-5.30); WHITE BLOOD CELL COUNT,WBC 10.14 K/mm3 (3.9-11.3)
[2024-06-19 16:27] LABS: HEMOGLOBIN A1C 4.9 %
[2024-06-19 16:35] LABS: A/G RATIO 1.3 (1-2); ALBUMIN 4.3 g/dl (3.4-5.0); ANION GAP 15.4 (5-15); BILIRUBIN TOTAL 0.8 mg/dL (0.2-1.0); BUN/CREATININE RATIO 13.3 (14-18); CALCIUM 9.2 mg/dL (8.5-10.1); CREATININE 0.9 mg/dL (0.55-1.02); EST CRCL DRUG DOSING (CG) 66.2 mL/min; POTASSIUM,K 4.4 mEq/L (3.5-5.1); PROTEIN TOTAL,TP 7.5 g/dl (6.4-8.2)
== END 2024-06-19 17:45 | disposition home or self-care (01) ==
LOC: JD.ED 15:07
DX: E16.2 Hypoglycemia, unspecified (principal); K04.7 Periapical abscess without sinus; J45.909 Unspecified asthma, uncomplicated; Z86.16 Personal history of COVID-19
CPT/HCPCS: 36415; 80053; 82947; 83036; 85025; 99284

== ENCOUNTER 2024-09-22 17:27 | Emergency (ER) | payer MEDICAID ==
[2024-09-22] MEDS ORDERED: Sodium Chloride 0.9% 10 ML Syringe FLUSH PRN (17:40)
[2024-09-22 17:58] LABS: BASOPHILS PERCENT AUTO 0.2 % (0.0-1.0); EOSINOPHILS PERCENT AUTO 0.1 % (0.0-6.0); HEMATOCRIT 41.2 % (37.0-47.0); IMMATURE GRAN ABSOLUTE AUTO 0.06 K/mm3 (0.00-0.05); IMMATURE GRAN PERCENT AUTO 0.4 % (0.0-0.4); LYMPHOCYTES ABSOLUTE AUTO 0.7 K/mm3 (1.0-4.8); LYMPHOCYTES PERCENT AUTO 4.4 % (24.0-44.0); MEAN CORPUSCULAR VOLUME 85.3 fl (83.0-99.0); MEAN PLATELET VOLUME 9.4 fl (9.4-12.3); MONOCYTES ABSOLUTE AUTO 0.4 K/mm3 (0.0-0.8); MONOCYTES PERCENT AUTO 2.7 % (0.0-8.0); NEUTROPHILS ABSOLUTE AUTO 14.3 K/mm3 (1.8-7.7); NEUTROPHILS PERCENT AUTO 92.2 % (41.0-71.0); PLATELET COUNT,PLT 234 K/mm3 (150-400); RED BLOOD CELL COUNT 4.83 M/mm3 (4.10-5.30); WHITE BLOOD CELL COUNT,WBC 15.47 K/mm3 (3.9-11.3)
[2024-09-22] MEDS: Sodium Chloride 0.9% 1,000 ML IV STA ×2 (18:07→21:08)
[2024-09-22] MEDS: Ondansetron 4 MG/2 ML SDV IVPUSH ONE ×2 (18:08→21:08)
[2024-09-22 18:22] LABS: A/G RATIO 1.4 (1-2); ALBUMIN 4.7 g/dl (3.4-5.0); ANION GAP 17.8 (5-15); BILIRUBIN TOTAL 1.2 mg/dL (0.2-1.0); C-REACTIVE PROTEIN 0.26 mg/dL (<0.30); CALCIUM 9.3 mg/dL (8.5-10.1); EST CRCL DRUG DOSING (CG) 60.44 mL/min; POTASSIUM,K 3.8 mEq/L (3.5-5.1); PROTEIN TOTAL,TP 8.1 g/dl (6.4-8.2)
[2024-09-22] MEDS: Metoclopramide 10 MG/2 ML SDV IVPUSH ONE (18:52)
[2024-09-22] MEDS: diphenhydrAMINE 50 MG/ML SDV IVPUSH ONE (18:57)
== END 2024-09-22 22:07 | disposition home or self-care (01) ==
LOC: JD.ED 17:27
DX: K52.9 Noninfective gastroenteritis and colitis, unspecified (principal); Z86.16 Personal history of COVID-19
CPT/HCPCS: 36415; 80053; 82947; 84703; 85025; 86140; 96361; 96374; 96375; 96376; 99284; J1200; J2405; J2765; J7030

== ENCOUNTER 2024-10-11 20:31 | Emergency (ER) | payer MEDICAID ==
[2024-10-11] MEDS: Amoxicillin/Clavulanate K 875-125 MG Tab PO ONE (21:42)
[2024-10-11] MEDS: Naproxen 500 MG Tab PO ONE (21:42)
[2024-10-11] MEDS ORDERED: Ondansetron 4 MG Tab.DIS PO ONE (21:53)
== END 2024-10-11 22:50 | disposition home or self-care (01) ==
LOC: JD.ED 20:31
DX: S02.5XXB Fracture of tooth (traumatic), initial encounter for open fracture (principal); J45.909 Unspecified asthma, uncomplicated; Z86.16 Personal history of COVID-19; Z79.899 Other long term (current) drug therapy; X58.XXXA Exposure to other specified factors, initial encounter
CPT/HCPCS: 99283; A9270

== ENCOUNTER 2025-02-04 23:05 | Emergency (ER) | payer MEDICAID ==
[2025-02-04] MEDS ORDERED: Magnesium Sulf/Wat 2 GM/50 mL 2 GM in Premix Bag 1 BAG IV ONE (23:37)
[2025-02-04] MEDS: Albuterol/Ipratropium 3.0-0.5 MG/3 ML Neb Soln NEB ONE (23:44)
[2025-02-05] MEDS: methylPREDNISolone Sodium Succinate 125 MG/2 ML SDV IVPUSH ONE (00:06)
[2025-02-05] MEDS: Magnesium Sulf/Wat 2 GM/50 mL 2 GM in Premix Bag 1 BAG IV ONE (00:06)
[2025-02-05] MEDS: Albuterol/Ipratropium 3.0-0.5 MG/3 ML Neb Soln NEB ONE (00:37)
[2025-02-05] MEDS: hydrOXYzine HCl 25 MG Tab PO ONE (00:59)
[2025-02-05] MEDS: Metoclopramide 10 MG/2 ML SDV IVPUSH ONE (01:23)
[2025-02-05] MEDS: Sodium Chloride 0.9% 1,000 ML IV ONE (01:23)
== END 2025-02-05 02:40 | disposition home or self-care (01) ==
LOC: JD.ED 23:05
DX: J45.909 Unspecified asthma, uncomplicated (principal); J11.1 Influenza due to unidentified influenza virus with other respiratory manifestations; F41.0 Panic disorder [episodic paroxysmal anxiety]; R11.2 Nausea with vomiting, unspecified; Z86.16 Personal history of COVID-19; Z79.899 Other long term (current) drug therapy
CPT/HCPCS: 94640; 96361; 96365; 96375; 99284; A9270; J2765; J2919; J3475; J7030; J7620

== ENCOUNTER 2025-04-12 08:09 | Emergency (ER) | payer MEDICAID ==
[2025-04-12] MEDS: Diphtheria,Pertussis(Acell),Tetanus Vaccine 0.5 ML Syringe IM ONE (08:51)
== END 2025-04-12 09:20 | disposition home or self-care (01) ==
LOC: JD.ED 08:09
DX: S91.311A Laceration without foreign body, right foot, initial encounter (principal); J45.909 Unspecified asthma, uncomplicated; J21.9 Acute bronchiolitis, unspecified; Z86.16 Personal history of COVID-19; Z79.899 Other long term (current) drug therapy; Z23 Encounter for immunization; W20.8XXA Other cause of strike by thrown, projected or falling object, initial encounter
CPT/HCPCS: 12001; 90471; 90715; 99282-25; 99283

== ENCOUNTER 2025-08-13 02:05 | Emergency (ER) | payer MEDICAID ==
[2025-08-13 02:43] LABS: BASOPHILS ABSOLUTE AUTO 0.0 K/mm3 (0.0-0.2); BASOPHILS PERCENT AUTO 0.4 % (0.0-1.0); EOSINOPHILS ABSOLUTE AUTO 0.1 K/mm3 (0.0-0.4); EOSINOPHILS PERCENT AUTO 0.6 % (0.0-6.0); IMMATURE GRAN ABSOLUTE AUTO 0.02 K/mm3 (0.00-0.05); IMMATURE GRAN PERCENT AUTO 0.2 % (0.0-0.4); LYMPHOCYTES ABSOLUTE AUTO 1.6 K/mm3 (1.0-4.8); LYMPHOCYTES PERCENT AUTO 19.3 % (24.0-44.0); MEAN PLATELET VOLUME 9.6 fl (9.4-12.3); MONOCYTES ABSOLUTE AUTO 0.5 K/mm3 (0.0-0.8); MONOCYTES PERCENT AUTO 5.8 % (0.0-8.0); NEUTROPHILS ABSOLUTE AUTO 6.3 K/mm3 (1.8-7.7); NEUTROPHILS PERCENT AUTO 73.7 % (41.0-71.0); NRBC ABSOLUTE 0.00 (0.00-0.02); NRBC PERCENT 0.0 % (0.0-0.2); PLATELET COUNT,PLT 225 K/mm3 (150-400); RED BLOOD CELL COUNT 4.47 M/mm3 (4.10-5.30); WHITE BLOOD CELL COUNT,WBC 8.49 K/mm3 (3.9-11.3)
[2025-08-13] MEDS: Aspirin 325 MG Tab.EC PO ONE (02:43)
[2025-08-13] MEDS: Sodium Chloride 0.9% 10 ML Syringe FLUSH PRN (02:43)
[2025-08-13 03:12] LABS: A/G RATIO 1.4 (1-2); ALANINE AMINOTRANSFERASE,ALT 20.0 U/L (14-59); ASPARTATE AMNIOTRANSFERASE,AST 19.0 U/L (15-37); BILIRUBIN TOTAL 0.6 mg/dL (0.2-1.0); BLOOD UREA NITROGEN,BUN 19.0 mg/dL (7-18); CARBON DIOXIDE,CO2 28.0 mEq/L (21-32); CHLORIDE,CL 102.0 mEq/L (98-107); CREATININE 0.9 mg/dL (0.55-1.02); EST CRCL DRUG DOSING (CG) 67.44 mL/min; ESTIMATED GFR 90.0 mL/min (>60); GLUCOSE RANDOM 104.0 mg/dL (70-99); PHOSPHORUS 3.5 mg/dL (2.6-4.7); POTASSIUM,K 3.6 mEq/L (3.5-5.1); PROTEIN TOTAL,TP 7.5 g/dl (6.4-8.2); SODIUM,NA 139.0 mEq/L (136-145); TROPONIN I HIGH SENSITIVITY 16.0 pg/mL (<=51)
== END 2025-08-13 03:13 | disposition home or self-care (01) ==
LOC: JD.ED 02:05
DX: R55 Syncope and collapse (principal); J45.909 Unspecified asthma, uncomplicated; K21.9 Gastro-esophageal reflux disease without esophagitis; Z79.899 Other long term (current) drug therapy; Z86.16 Personal history of COVID-19
CPT/HCPCS: 36415; 71045; 80053; 83735; 84100; 84484; 84703; 85025; 93005; 99285; A9270